=== PATIENT | male | born 1945 | race Caucasian/White ===

== ENCOUNTER 2019-01-06 12:53 | Inpatient (IN) | payer MEDICARE ==
[~2019-01-06] VITALS: Ht 185.4 cm; Wt 90.3 kg
[~2019-01-06 12:53] MED LIST: CARDURA8 MG PO
[2019-01-06] MEDS ORDERED: PRINIVIL20 MG PO (14:02)
[2019-01-06] MEDS ORDERED: K-TAB ER20 MEQ PO (15:30)
[2019-01-06] MEDS ORDERED: ATENOLOL-CHLOR1 EACH PO (15:30)
[2019-01-06] MEDS ORDERED: NORVASC10 MG PO (15:32)
--- NOTE | 2019-01-06 19:09 | NUR ---
PT ADMITTED TO FLOOR. DR BROOKS IN ROOM AND ORDERED NG TUBE PLACEMENT, BOLUS AND FLUIDS. GOING TO SURGERY IN APPROX ONE HOUR FROM ADMISSION. PT SIG OTHER IN ROOM, MAXWELL. PLACED NG ORDERED, WOULD NOT ADVANCE AND GOT A BLOODY NOSE IN LEFT NARE. REMOVED AND PLACED WO DIFFICULTY IN RIGHT NARE. APPORX 25O GREEN FLUID BACK INTO LIWS. PT [place] PERFORMED. NO JEWELRY. UNDERWEAR AND SOCKS REMOVED. SCDS. PLACED. VS STABLE. PT REMAINS ON RA. RATES PAIN 5\10. LR AND STRAIGHT TUBING HANGING.
--- NOTE | 2019-01-06 19:20 | NUR ---
REPORT RECEIVED FROM DAY SHIFT RNYUMIKO. PT IN BED AOX3. SIGNIFICANT OTHER AT BEDSIDE. NG TUBE PATENT. IV BOLUS INFUSING. SCD'S IN PLACE. CALL LIGHT IN REACH.
--- NOTE | 2019-01-06 19:40 | NUR ---
ROUNDED CHARGE. PATIENT IS DISCUSSING PLAN OF ACTION WITH ELEVATOR SUPERVISOR. IS PRESENT AT THE BEDSIDE. ALL QUESTIONS ANSWERED. PATIENT AND DENY AN FURTHER COMMENTS, QUESTIONS, OR CONCERNS. NO FURTHER NEEDS NOTED. CALL LIGHT IN REACH.
--- NOTE | 2019-01-06 19:45 | NUR ---
FAMILY LAW ATTORNEY AND SURGERY NURSE IN TO TRANSFER PT TO OR. LR AND ZOSYN HUNG TO STRAIGHT TUBING PER MD ORDERS. NG TUBE CLAMPED. SIGNIFICANT OTHER, MAXWELL, REMAINS IN PT ROOM.
--- NOTE | 2019-01-06 23:02 | NUR ---
01/06/19 2302 Divya Parham 2215 PT ARRIVED IN PACU NON RESPONSIVE TO VERBAL/TACTILE STIMULI WITH ORAL AIRWAY IN PLACE. 221 EKG DONE BY RT. 2230 DR HIGH AT BEDSIDE CHECKING ON PT. LABS DRAWN. 2245 PT REACTIVE. ORAL AIRWAY REMOVED. FALLS BACK TO SLEEP WHEN NOT STIMULATED. SATS 99% ON 6L MASK.
--- NOTE | 2019-01-06 23:30 | NUR ---
PT TRANSFERRED TO FLOOR VIA STRETCHER, TRANSFERRED SELF TO HOSPITAL BED WITH OUT DIFFICULTY. HAND OFF REPORT RECEIVED FROM PACU NURSE. PT AOX3. NO C/O PAIN OR NAUSEA. SCD'S IN PLACE. TELE PLACED PER MD ORDERS. SIPS OF WATER GIVEN. ASSESSMENT AND VS COMPLETE. PT RE-ORIENTED TO ROOM, INSTRUCTED NOT TO GET OUT OF BED WITHOUT ASSISTANCE. CALL LIGHT IN REACH.
--- NOTE | 2019-01-07 00:30 | NUR ---
PT RESTING IN BED WITH EYES CLOSED, AWAKENS EASILY. VS COMPLETE. NO C/O PAIN OR NAUSEA. NO REQUESTS AT THIS TIME, CALL LIGHT IN REACH.
--- NOTE | 2019-01-07 01:31 | NUR ---
PT DROWSY BUT AWAKENS EASILY. AOX3. DENIES PAIN OR NAUSEA AT THIS TIME. IV POTASSIUM INFUSING, PT W/O COMPLAINTS OR REQUESTS AT THIS TIME. CALL LIGHT IN REACH.
--- NOTE | 2019-01-07 02:30 | NUR ---
VS COMPLETE. PT IN BED RESTING WITH EYES CLOSED, AWAKENS EASILY. AOX3. NO C/O PAIN OR NAUSEA. O2 SATS 97% ON 2L/NC, RR 14. IV MEDS INFUSING PER MD ORDER. SCD'S IN PLACE. BECKY PATENT. PT HAS NO OTHER REQUESTS AT THIS TIME, CALL LIGHT IN REACH.
--- NOTE | 2019-01-07 05:03 | NUR ---
PT AWAKE IN BED, WATCHING TV. IV ABX INFUSING. PT DENIES PAIN OR NAUSEA. ASSESSMENT COMPLETE. PT TOLERATING SIPS OF WATER. SAYS HE FEELING "MUCH BETTER THAN YESTERDAY". NO OTHER REQUESTS AT THIS TIME, CALL LIGHT IN REACH.
--- NOTE | 2019-01-07 06:17 | NUR ---
PATIENT RESTED WELL THROUGHOUT THE NIGHT WITH NO C/O PAIN OR NAUSEA. SCD'S IN PLACE. PENA PATENT, DRAINING YELLOW URINE. PT'S O2 SATS >97% CONSISTENTLY. O2 AND CPOX REMOVED THIS A.M. PT TOLERATING SIPS OF WATER. DRESSING CLEAN, DRY, AND INTACT. TELE #[address] PT REMAINED AOX3 ALL NIGHT.
--- NOTE | 2019-01-07 07:10 | NUR ---
PT OOB TO RECLINER WITH STANDBY ASSIST. PT DID NOT COMPLAIN OF DIZZINESS, STEADY ON HIS FEET. ABD SPLINT PROVIDED FOR COMFORT. APPLE JUICE GIVEN PER PT REQUEST. PT DENIES PAIN OR NAUSEA. CALL LIGHT IN REACH.
--- NOTE | 2019-01-07 07:45 | NUR ---
REPORT RECIEVED FROM GLENYS ALVAREZ. PT SITTING UP IN CHAIR. INSTRUCTED ME "NO MORE NG TUBES FROM YOU" APPEARS IN A GOOD MOOD. STATES PAIN HAS BEEN WELL CONTROLLED. LR @125. TOLERATING CLEAR LIQ.
--- NOTE | 2019-01-07 10:17 | NUR ---
PT ASSESSMENT DONE. DRESSING CDI. LUNGS DIM IN RIGHT BASE. PENA REMOVED WNL. EDUCATED ON CURRENT ILLNESS AND RECENT AFIB DIAGNOSIS. ADMINISTERED MEDICATIONS. ASSISTED BACK TO BED FOR ECHO.
--- NOTE | 2019-01-07 10:55 | NUR ---
PT SITTING BACK IN CHAIR AFTER HAVING ECHO. APPEARS PAINFUL WITH MOVEMENT BUT STATES THAT IT SUBSIDES AFTER SITTING, DECLINED MEDICATION.
--- NOTE | 2019-01-07 11:28 | NUR ---
PT WALKED TWO LAPS IN HALLWAY AT MODERATE PACE. DECLINED ANY PAIN MEDICATION. TOLERATED WELL. SITTING BACK IN CHAIR WITH BLANKETS.
--- NOTE | 2019-01-07 12:28 | NUR ---
VISITED WITH PT GLENYS CALDERON WAS ATTENDING. PT JOKING SAID I COULD ENTER IF I DIDN'T HAVE ANY "TUBES OR SHARP THINGS"! BRIEF VISIT, PT GETTING READY TO WALK IN HALLWAY. GAVE ENCOURAGEMENT, WILL FOLLOW NEEDED
--- NOTE | 2019-01-07 12:44 | NUR ---
PT SITTING IN CHAIR JUST FINISHED CLEAR LUNCH TRAY. WOULD LIKE TO BE ADVANCE A BIT FOR DINNER. DENIES FLATUS, BUT HAS ACTIVE BT'S. DOES NOT FEEL URGE TO VOID YET. WILL MONITOR. DENIES PAIN MEDICATION, STATES IT IS TOLERABLE.
--- NOTE | 2019-01-07 13:39 | EKG ---
[facility] [address] [facility] [place], [place] [address] Signed Atrial fibrillation with slow ventricular response Possible Inferior infarct , age undetermined Abnormal ECG No previous ECGs available Confirmed by SIENA HIGH MD ([id number]) on 01/07/2019 1:39:17 PM Electronically Signed By: SIENA HIGH MD 01/07/19 1339 PATIENT NAME: HENNY SAUCEDA Electrocardiogram DATE OF : 45 PHYSICIAN: SIENA HIGH MD REPORT #: [id number] REPORT IS CONFIDENTIAL AND NOT TO BE RELEASED WITHOUT AUTHORIZATION
--- NOTE | 2019-01-07 13:42 | EKG ---
[facility] [address] [facility] [place], [place] [address] Signed Atrial fibrillation Abnormal ECG When compared with ECG of 06-JAN-2019 13:59, (Unconfirmed) QT has lengthened Confirmed by SIENA HIGH MD ([id number]) on 01/07/2019 1:42:29 PM Electronically Signed By: SIENA HIGH MD 01/07/19 1342 PATIENT NAME: SOHAILHENNY ELKINS Electrocardiogram DATE OF : 45 PHYSICIAN: SIENA HIGH MD REPORT #: [id number] REPORT IS CONFIDENTIAL AND NOT TO BE RELEASED WITHOUT AUTHORIZATION
--- NOTE | 2019-01-07 14:15 | NUR ---
pt sitting up in chair. pt has no needs at this time. call light within reach.
--- NOTE | 2019-01-07 14:53 | NUR ---
PT ON PHONE WITH FRIEND AND WOULD LIKE TO WALK IN A BIT, WHEN OFF PHONE. WILL RETURN.
--- NOTE | 2019-01-07 15:30 | NUR ---
PT WALKED IN HALLWAY WITH THIS RN. DID TWO LOOPS QUITE QUICKLY AGAIN. TOLERTAED WELL. ADMINISTERED 1ST PRN TYLENOL AND SOME ICE CREAM. PT BACK IN CHAIR WITH FEET UP. CALL LIGHT IN REACH.
--- NOTE | 2019-01-07 16:52 | NUR ---
PT STATES THE ICE CREAM MADE HIS STOMACH GRUMBLE A BIT. LISTENED FOR BOWEL TONES AND NOW RARELY HERE ANYTHING. ADVISED PT TO GO SLOWLY WITH INTAKE AND LET ME KNOW IF HE GETS NAUSOUS.
--- NOTE | 2019-01-07 17:42 | NUR ---
WALKED ANOTHER 2 LAPS IN THE HALLWAY. TOLERATED WELL. ATE FULL LIQ TRAY WO DIFFICULTY. UP TO RESTROOM. VOIDED AGAIN. WANTED TO GET BACK IN BED FOR A LITTLE WHILE. STATES HE WILL TRY TO WALK AGAIN TONIGHT WITH RAILROAD TRACK REPAIR SUPERVISOR. BUT IS PRETTY TIRED FROM BEING UP ALL DAY.
--- NOTE | 2019-01-07 18:06 | NUR ---
PT WALKED IN HALLWAY MULTIPLE TIMES TODAY, 2 LAPS EACH TIME. TOLERATED WELL. BT ACTIVE THIS MORNING AND NOW RARE. PT DENIES BLOATING, TIGHTNESS OR MUCH PAIN. GIVEN TYLENOL X1 TODAY. STATES HE FEELS SOME RUMBLING BUT HASN'T PASSED GAS. MIDLINE CDI. ABD REMARKABLY NON TENDER. TOLERATING FULL LIQ.
--- NOTE | 2019-01-07 18:55 | OR ---
[facility] [address] [place], [place] [address] Signed DATE OF OPERATION: 01/06/2019 SURGEON: Benji Brooks MD PREOPERATIVE DIAGNOSES: Acute cecal volvulus with colonic obstruction and new onset atrial fibrillation. POSTOPERATIVE DIAGNOSES: 1. Acute cecal volvulus with colonic obstruction and new onset atrial fibrillation. 2. Ischemic colon. 3. Subacute cholecystitis with dilated gallbladder. PROCEDURES PERFORMED: 1. Right colectomy with [id number] ileotransverse colostomy. 2. Open cholecystectomy. ANESTHESIA: 1. General endotracheal, [place]. 2. Preoperative TAP block ultrasound guided. INDICATION: This 74-year-old white man was admitted through the emergency room, evaluated by Dr. Muñoz, with two days of increasing and severe abdominal pain. He has marked abdominal distention clinically. A CT scan was performed, which showed a very enlarged cecum related to cecal volvulus. The patient's white count was 11.5. He does have new onset atrial fibrillation, though his rate is well controlled as he is on a beta gnhia to begin with. He has been fluid resuscitated given intravenous antibiotics, and is now to undergo a laparotomy with remedy of this cecal volvulus. This might involve cecopexy or more likely partial colectomy. Risks of bleeding, infection, need for other indicated procedures and so forth were reviewed with the patient and his significant other in detail. They understand and wished to proceed. FINDINGS: Indeed the cecum and essentially all the right colon and portion of the hepatic flexure of the colon were markedly ischemic and dilated. Right hemicolectomy was undertaken with a hjwt-ct-[id number] functional end-to-end ileotransverse colostomy. Small bowel loops were otherwise normal. The gallbladder was chronically and subacutely inflamed and cholecystectomy was also performed. He tolerated the procedure well. DESCRIPTION OF PROCEDURE: Electronically Signed By: BENJI BROOKS MD 01/07/19 1855 PATIENT NAME: HENNY SAUCEDA OPERATIVE REPORT DATE OF : 45 REPORT #: [id number] PHYSICIAN: BENJI BROOKS MD PCP: NO PRIMARY CARE PHYSICIAN REPORT IS CONFIDENTIAL AND NOT TO BE RELEASED WITHOUT AUTHORIZATION [facility] [address] [place], [place] [address] Signed The patient was brought to the operating room and given a general endotracheal anesthetic. With ultrasound guidance, a TAP block was provided bilaterally. The abdomen was clipped and prepared with chlorhexidine solution after placement of a Edmondson catheter. An incision was made cephalad to the umbilicus and extending below it somewhat. The initial attempt was to maintain a small incision; however, upon entry to the abdomen, marked dilation of the colon and friability and ischemic changes were quite readily evident. There was no gross perforation that I could tell or abscess fluid. The incision was extended cephalad and inferiorly a bit. Various manipulations were undertaken and photographs were taken. A tightly coiled torsed cecum was noted and could not be unfurled with the exposure and therefore the incision was extended cephalad a bit. This allowed for detorsion of the cecum revealing a markedly ischemic cecum and dilated portion of right transverse colon. The ileum itself was well preserved. There was lack of fixation of the right colon to the abdominal wall. There were adhesions of omentum in the region of the gallbladder. The gallbladder was freed from the omental adhesions with electrocautery. A Bookwalter was attached to the table and ultimately the right colon, ileum, and transverse colon could be delivered outside of the abdominal cavity. Given the ischemic changes of the cecum in particular, right colectomy was deemed most advisable. The hepatic flexure was mobilized first predominantly with electrocautery with good visualization of the duodenum and head of the pancreas. The transverse mesocolon was well identified and the attenuated attachments from the right abdominal wall were freed with electrocautery ultimately mobilizing the right colon and the outside of the abdomen more fully. Sequential application of hemostats beginning at the ileum was undertaken to the mesentery allowing for ligation of the vascular arcades with 0 silk ties. Division of the right colon mesentery was undertaken approximately half the distance between the colon and the root of the mesentery. This extended superiorly and transversely across to the transverse mesocolon. The middle colic arterial vascular arcade was maintained. An area of transection was designated to right of the middle colic vessels. Using a 75 mm MINERVA stapling device, the transverse colon was transected. Subsequent to that, the ileum was transected just beyond the antimesenteric fat pad of tree. Specimen was passed off the table, opened on the back table and found to have necrotic and ischemic segments throughout. The wound was then isolated with laparotomy packs and plans were made for anastomosis. The stapled ends were oversewn with interrupted 3-0 silk suture. The bowel was aligned to allow for a [id number] functional, end-to-end stapled anastomosis so as to expedite the operation given his underlying new onset atrial fibrillation and other stressors. Electronically Signed By: BENJI BROOKS MD 01/07/19 0876 PATIENT NAME: HENNY SAUCEDA OPERATIVE REPORT DATE OF : 45 REPORT #: [id number] PHYSICIAN: BENJI BROOKS MD PCP: NO PRIMARY CARE PHYSICIAN REPORT IS CONFIDENTIAL AND NOT TO BE RELEASED WITHOUT AUTHORIZATION [facility] [address] [place], [place] [address] Signed Using the 75 mm MINERVA, the two segments of bowel were joined. The staple line was inspected and found to be hemostatic. The anvil sites were then oversewn with interrupted 3-0 silk suture. Good security was noted to the anastomosis, which was widely patent. The mesenteric defect was reapproximated with running 3-0 silk suture. Irrigation was undertaken with warm saline solution. Reinspection around the abdomen showed the gallbladder to be quite distended and inflamed. Was that secondary to the process of the colon or separate issue from the gallbladder itself was uncertain. Cholecystectomy was deemed appropriate. A ring clamp was applied to the apex of the gallbladder and using electrocautery it was dissected free from the liver bed ultimately identifying well the cystic duct and cystic arterial branch, which were triply clipped and divided. The gallbladder was passed off the table and found to have chronic inflammatory changes of the mucosa. Irrigation was undertaken more fully. There was no sign of bile leak or other problems. The omentum was inspected and few areas of oozing were secured with hemostats and silk ties. Once irrigation was complete and excess irrigation fluid was suctioned free, the bowel was rearranged to a natural anatomic configuration, the omentum placed over the abdominal contents. Attention was then turned towards closure. The gastric tube was palpated and was in good position. The stomach was decompressed already. Nasogastric tube was removed at this point. Midline fascia was reapproximated with running bidirectional #1 PDS suture. Subcutaneous tissue irrigated and skin closed with running subcuticular 3-0 Vicryl. Steri-Strips were applied as was a Mepilex silver sponge dressing and OpSite. Benji Brooks MD JM/MODL /[id number] cc: Grace Muñoz MD Copies: GRACE MUÑOZ MD ~ Electronically Signed By: BENJI BROOKS MD 01/07/19 1855 PATIENT NAME: HENNY SAUCEDA OPERATIVE REPORT DATE OF : 45 REPORT #: [id number] PHYSICIAN: BENJI BROOKS MD PCP: NO PRIMARY CARE PHYSICIAN REPORT IS CONFIDENTIAL AND NOT TO BE RELEASED WITHOUT AUTHORIZATION
--- NOTE | 2019-01-07 18:55 | HP ---
[facility] [address] [place], [place] [address] Signed ADMISSION DATE: 01/06/2019 REASON FOR ADMISSION: Advanced cecal volvulus with obstruction. HISTORY OF PRESENT ILLNESS: This 74-year-old white man is known to me from the distant past having undergone excision of right cheek basal cell carcinoma by me in 2011. Additionally, he has had hand surgery by me in the distant past. The operative reports were not available. He has had 48 hours of increasing abdominal pain and presented to the emergency room, where he was thoroughly evaluated by Dr. Muñoz. His pain was worsened with abdominal palpation. A CT scan was performed, which showed a marked cecal volvulus. He is admitted for further evaluation and care. The patient has not had nausea or vomiting, though he has had distention of his stomach in addition to the markedly distended cecum proper. He was noted to have concurrent hyponatremia. The patient has had weight loss in recent times related to dieting. His significant other (live-in girlfriend) underwent a bariatric operation and show solidarity with her purpose to embark on weight loss efforts. Noted on the CT scan was a distended stomach with air-fluid level, but normal gallbladder and other intraabdominal organs including the liver. There is mild bibasilar atelectasis. MEDICATIONS: At admission include amlodipine 10 mg p.o. daily, atenolol, chlorthalidone 0.5 tablet daily, lisinopril 20 mg p.o. daily, potassium chloride by K-Tab extended release 20 mEq p.o. daily. ALLERGIES: He has no known drug allergies. SOCIAL HISTORY: He continues to work part-time for [employer] in the [place], [place] area. He has a significant other girlfriend, who he lives with. REVIEW OF SYSTEMS: He denies any chest pain or shortness of breath particularly. He has not recently had Electronically Signed By: BENJI BROOKS MD 01/07/19 1855 PATIENT NAME: HENNY SAUCEDA HISTORY AND PHYSICAL DATE OF : 45 REPORT #: [id number] PHYSICIAN: BENJI BROOKS MD PCP: NO PRIMARY CARE PHYSICIAN REPORT IS CONFIDENTIAL AND NOT TO BE RELEASED WITHOUT AUTHORIZATION [facility] [address] [place], [place] [address] Signed nausea or vomiting. He has had no blood per rectum and no flatus per rectum. Abdominal pain is about 6-7 on a 10 scale. PHYSICAL EXAMINATION: GENERAL: Pleasant white man, who does not look systemically toxic at this time. HEENT: Mucous membranes are slightly dry. Trachea is midline. CHEST: Clear. HEART: Regular without murmur. ABDOMEN: Distended and firm. Palpation of the upper abdomen shows mild tenderness. There is no ascites that I can tell. EXTREMITIES: Show no clubbing, cyanosis, or edema. LABORATORY STUDIES: Show a white count of 11.5, hematocrit 45.5, platelets 141,000. Chem profile abnormal for sodium of 126, chloride is 92, creatinine is 1.19, glucose 177, bilirubin 1.5. Liver enzymes normal. Lipase normal at 21. Urinalysis essentially normal, specific gravity 1.021, urine white cells 8-10 per high-power field. Imaging studies reviewed include a chest x-ray, which shows no significant cardiopulmonary abnormality, mild bibasilar atelectasis is noted. CT of abdomen as previously described. ASSESSMENT AND PLAN: He has an impressively significant cecal volvulus with obstruction. As colonoscopically decompression is commonly unsuccessful, I recommend proceeding directly to operation, which will include possible detorsion of the volvulus and cecopexy with decompression versus right colectomy depending on findings. Risks of bleeding, infection, and other unforeseen complications were reviewed in detail. Fluid will be administered at this time and a nasogastric tube placed on the basis of his findings on CT of a full stomach. MD LANCE Smith/MODL /[id number] cc: Grace Muñoz MD Electronically Signed By: BENJI BROOKS MD 01/07/19 1855 PATIENT NAME: HENNY SAUCEDA HISTORY AND PHYSICAL DATE OF : 45 REPORT #: [id number] PHYSICIAN: BENJI BROOKS MD PCP: NO PRIMARY CARE PHYSICIAN REPORT IS CONFIDENTIAL AND NOT TO BE RELEASED WITHOUT AUTHORIZATION [facility] [address] [place] [address] [place] [address] Signed Copies: GRACE MUÑOZ MD ~ Electronically Signed By: BENJI BROOKS MD 01/07/19 1855 PATIENT NAME: HENNY SAUCEDA HISTORY AND PHYSICAL DATE OF : 45 REPORT #: [id number] PHYSICIAN: BENJI BROOKS MD PCP: NO PRIMARY CARE PHYSICIAN REPORT IS CONFIDENTIAL AND NOT TO BE RELEASED WITHOUT AUTHORIZATION
--- NOTE | 2019-01-07 20:23 | NUR ---
REPORT RECEIVED FROM DAY SHIFT RN. PT IN BED WATCHING TV, ALERT AND ORIENTED. SCD'S IN PLACE. MD IN TO SEE PATIENT. PT REPORTS PASSING GAS. NO OTHER REQUESTS AT THIS TIME, CALL LIGHT IN REACH.
--- NOTE | 2019-01-07 20:48 | NUR ---
ASSESSMENT COMPLETE, SCANT AMT OF DRAINAGE NOTED ON ABDOMINAL DRESSING. HYPOACTIVE BOWEL TONES, PT STATES HE PASSED GAS. PT DENIES PAIN OR NAUSEA. SCD'S IN PLACE. CALL LIGHT IN REACH. NO OTHER REQUESTS AT THIS TIME.
--- NOTE | 2019-01-08 00:20 | NUR ---
PT RESTING IN BED WITH EYES CLOSED, RR 14. CALL LIGHT IN REACH.
--- NOTE | 2019-01-08 02:19 | NUR ---
ASSESSMENT COMPLETE. PT DENIES PAIN OR NAUSEA. NO OTHER REQUESTS AT THIS TIME. CALL LIGHT IN REACH.
--- NOTE | 2019-01-08 04:14 | NUR ---
IV ABX INFUSING. PT RESTING IN BED. NO C/O NAUSEA OR PAIN. FRESH WATER GIVEN PER PT REQUEST. CALL LIGHT IN REACH.
--- NOTE | 2019-01-08 05:42 | NUR ---
PT HAS RESTED WELL THROUGHOUT THE NIGHT. MEDICATED WITH PRN TYLENOL FOR C/O 3/10 ABDOMINAL PAIN RESULTING FROM COUGHING. STATES HIS THROAT IS STILL IRRITATED FROM THE "TUBE" YESTERDAY. VOIDING QS. NO COMPLAINTS OF NAUSEA. STATES HE HAS PASSED GAS. PT ON TELE #5.
--- NOTE | 2019-01-08 06:30 | NUR ---
PT OOB TO CHAIR. AMB WITH MINIMAL ASSIST. STATES PAIN IS 3/10, DESCRIBES IT FEELING "SORE". IN RECLINER WITH LEGS ELEVATED, CALL LIGHT IN REACH.
--- NOTE | 2019-01-08 08:30 | NUR ---
SBA INTO BATHROOM FOR BM, STATES HE IS FEELING STRONGER TODAY. HOPES TO HAVE DIET ADVANCED FROM FULL LIQUID. STATES HE IS FEELING HUNGRY. GOOD BOWEL TONES.
[2019-01-08] MEDS ORDERED: VITAMIN D-32000 UNIT PO (09:45)
--- NOTE | 2019-01-08 09:45 | NUR ---
MED REC COMPLETE
--- NOTE | 2019-01-08 12:40 | NUR ---
PT SITTING IN CHAIR, WATCHING TV. HE WAVED AND SMILED, ALERT AND ORIENTED. HE LOOKED RATHER SULLEN, I ASKED HIM HOW HE WAS DOING? NOT MUCH SLEEP LAST NIGHT-RN'S CONSTANTLY WAKING HIM UP. HE ALSO MENTIONED HE IS REALLY BORED AND WOULD REALLY LIKE TO BE DC'D. GAVE ENCOURAGEMENT AND BLESSING, WILL FOLLOW NEEDED
--- NOTE | 2019-01-08 13:15 | NUR ---
PT INTO BATHROOM AND PASSED A SMALL AMOUNT OF STOOL AND INCREASED AMOUNT OF MICHAEL RED BLOOD. CALL PLACED TO DR BROOKS RE: INCREASED BLOOD WITH STOOL. STATED HE WOULD LIKE IT MONITORED AT THIS POINT AND NOT UNUSUAL WITH THIS TYPE OF STAPLE LINE IN HIS SURGERY. PT WALKED LOOP, NO WEAKNESS. DENIES PAIN.
--- NOTE | 2019-01-08 16:11 | NUR ---
PT IS TOLERATING REGULAR DIET WELL. NO FURTHER BLEEDING OR STOOLS. AMBULATED IN HALLWAY AGAIN. DENIES ANY NEEDS. RESTING IN RECLINER.
--- NOTE | 2019-01-08 18:30 | NUR ---
RESTING ON BED, STATES HE IS COMFORTABLE, NO NAUSEA, NO FURTHER BLEEDING, GOOD BOWEL SOUNDS, NO NAUSEA. DENIES ANY NEEDS. CALL LIGHT IN EASYR EACH.
--- NOTE | 2019-01-08 19:01 | NUR ---
IN ROOM FOR REPORT, PT DENIES NEEDS AT THIS TIME. CALL LIGHT IS WITHIN REACH.
--- NOTE | 2019-01-08 20:33 | NUR ---
IN ROOM TO ADMINISTER MEDICATIONS AND ASSESS PT. HE REPORTS PAIN AT 3/10 AND TYLENOL WAS ADMINISTERED. HIS MIDLINE INCISION IS CDI WITH A SMALL AMOUNT OF SHADOWING NOTED ON THE INFERIOR END OF THE DRESSING. PT HAS FRESH ICEWATER AT BED SIDE AND DENIES FURTHER NEEDS. CALL LIGHT IS WITHIN REACH.
--- NOTE | 2019-01-08 21:30 | NUR ---
this rn in room to answer call light. pt states, "i need these foot things off, i can't sleep". pt refuses to wear bilateral scd's at this time. pt's house worker rn made aware. no further needs, call light in reach.
--- NOTE | 2019-01-08 22:59 | NUR ---
PT IS RESTING WITH EYES CLOSED, RESPIRATIONS ARE EVEN AND NONLABORED. CALL LIGHT IS WITHIN REACH.
--- NOTE | 2019-01-09 00:05 | NUR ---
EMPTIED PT'S URINAL. HE DENIES FURTHER NEEDS AT THIS TIME. CALL LIGHT IS WITHIN REACH.
--- NOTE | 2019-01-09 00:27 | NUR ---
PT IS RESTING WITH EYES CLOSED, RESPIRATIONS ARE EVEN AND NONLABORED. CALL LIGHT IS WITHIN REACH.
--- NOTE | 2019-01-09 02:00 | NUR ---
PT IS RESTING WITH EYES CLOSED, RESPIRATIONS ARE EVEN AND NONLABORED. CALL LIGHT IS WITHIN REACH.
--- NOTE | 2019-01-09 03:56 | NUR ---
PT IS RESTING WITH EYES CLOSED, RESPIRATIONS ARE EVEN AND NONLABORED. CALL LIGHT IS WITHIN REACH.
--- NOTE | 2019-01-09 05:10 | NUR ---
PT WAS UP TO RESTROOM, HE DENIES NEEDS AT THIS TIME. HE STATES HE HAS ALREADY ORDERED BREAKFAST AND DENIES PAIN AND FURTHER NEEDS AT THIS TIME. CALL LIGHT IS CLOSE.
--- NOTE | 2019-01-09 06:04 | NUR ---
PT REPORTS USING THE URINAL AND DUMPING IT ABOUT 600MLS. HE ALSO SAYS HE HAD A BM BUT FLUSHED IT. HE DENIES BLOOD BUT SAYS IT WAS DARK. HE DENIES FURTHER NEEDS AT THIS TIME. CALL LIGHT IS CLOSE.
--- NOTE | 2019-01-09 06:45 | NUR ---
PT SLEPT ON AND OFF THROUGH THE NIGHT. HIS IV IS SL AND HE IS TOLERATING A REGULAR DIET. HE AMBULATES SBA/IND. URINE OUTPUT IS GOOD AND PT REPORTS A BM THAT WAS "DARK" BUT DENIES BLOOD IN IT. HE IS HOPING TO DC HOME TODAY. ABD DRESSING IS CDI WITH A SCANT AMT OF SHADOWING.
--- NOTE | 2019-01-09 07:00 | NUR ---
BEDSIDE HANDOFF REPORT RECEIVED FROM LOUNGE CAR ATTENDANT RN. PT SITTING IN CHAIR. PT DENIES NEEDS AT THIS TIME.
--- NOTE | 2019-01-09 08:36 | NUR ---
PT SITTING IN CHAIR, EATING BREAKFAST. PT STATES PAIN TOLERABLE. PT DENIES NAUSEA, TOELRATING REGULAR DIET. PT ON ROOM AIR, LUNG SOUNDS CLEAR. BOWEL TONES ACTIVE. MIDLINE INCISION WITH DRESSING INTACT, SMALL AMOUNT OF OLD DRAINAGE TO LOWER DRESSING. CMS INTACT, WITHOUT EDEMA, DENIES NUMBNESS/TINGLING. PT SALIEN LOCKED. PT INDEPENDENT IN ROOM. DISCUSSED PLAN OF CARE FOR THE DAY, DISCUSSED WALKING IN WANG. PT DENIES OTHER NEEDS AT THIS TIME.
--- NOTE | 2019-01-09 09:36 | NUR ---
PT WALKED TWO LAPS IN THE HALLWAY AND DID VERY WELL. BACK IN CHAIR AND CALL LIGHT IN PLACE.
[2019-01-09] MEDS ORDERED: OFIRMEV1000 MG/10 IV (09:46)
[2019-01-09] MEDS ORDERED: IBUPROFEN600 MG PO (09:46)
[2019-01-09] MEDS ORDERED: METRONIDAZOLE250 MG PO (09:46)
[2019-01-09] MEDS ORDERED: AMOX TR-K CLV1 EACH PO (09:46)
[2019-01-09] MEDS ORDERED: FAMOTIDINE20 MG PO (10:00)
[2019-01-09] MEDS ORDERED: TYLENOL325 MG PO (10:00)
--- NOTE | 2019-01-09 10:37 | NUR ---
PT ANXIOUS TO DISCHARGE, EDUCATED THAT DR. HIGH WILL NEED TO SEEM HIM BEFORE DISCHARGE. PT DENIES OTHER NEEDS AT THIS TIME.
--- NOTE | 2019-01-09 11:51 | NUR ---
PATIENT REFUSED SHOWER THIS MORNING. CHANGED BED LINENS.
[2019-01-09] MEDS ORDERED: ATENOLOL50 MG PO (12:18)
--- NOTE | 2019-01-10 00:52 | EKG ---
[facility] [address] [place] [address] Signed Atrial fibrillation with rapid ventricular response Minimal voltage criteria for LVH, may be normal variant Abnormal ECG When compared with ECG of 06-JAN-2019 22:17, Vent. rate has increased BY 35 BPM Confirmed by SIENA HIGH MD ([id number]) on 01/10/2019 12:52:24 AM Electronically Signed By: SIENA HIGH MD 01/10/19 0052 PATIENT NAME: HENNY SAUCEDA Electrocardiogram DATE OF : 45 PHYSICIAN: SIENA HIGH MD REPORT #: [id number] REPORT IS CONFIDENTIAL AND NOT TO BE RELEASED WITHOUT AUTHORIZATION
--- NOTE | 2019-01-10 22:37 | DS ---
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 He had 48 hours of increasing abdominal pain, presented to the emergency room, where he was evaluated by Dr. Mclain. His pain worsened. Abdominal palpation showed it to be tender and with marked distention. A CT scan of the abdomen confirmed cecal volvulus. He is admitted for further evaluation and care. PERTINENT PHYSICAL EXAMINATION: GENERAL: Showed a tall white man who did not look systemically toxic. Trachea midline. CHEST: Clear. HEART: Irregularly irregular without murmur. EKG revealed findings consistent with atrial fibrillation (new onset). Heart rate was in the 70s however. ABDOMEN: Markedly distended and tender diffusely, mostly in the right side. EXTREMITIES: Showed no clubbing, cyanosis, or edema. LABORATORY STUDIES: Showed white count 11.5, hematocrit 45.5, platelets 141,000. Creatinine 1.19. Liver enzymes were normal. Lipase normal at 21. HOSPITAL COURSE: He was recognized as having significant cecal volvulus, and on that basis, fluid resuscitation was undertaken. Broad spectrum antibiotic Timentin was given and plans were made for operation emergently. He underwent laparotomy where he was found to have a markedly torsed cecum and right colon. He underwent right colectomy with [id number] functional end-to-end ileotransverse colostomy. Additionally, cholecystectomy was performed as the gallbladder was chronically inflamed. The liver appeared normal. He was begun on clear liquids the night of operation, anticipating an early recovery approach. He had undergone a TAP block anticipating operation and use of intravenous Tylenol and Toradol was undertaken. A backup of opiate medication was available, but never used. On postoperative day one, he had some flatus and was advanced his liquid diet to full liquid diet and postop day 2 had bowel movement, for which he was advanced to regular diet. He tolerated all of this well and by day of discharge is ambulating well, tolerating a regular diet, has minimal incisional pain well managed by Tylenol alone. Incision is healing well. Pathology report is pending. Electronically Signed By: BENJI BROOKS MD 01/10/19 2237 PATIENT NAME: HENNY SAUCEDA DISCHARGE SUMMARY DATE OF : 45 REPORT #: [id number] PHYSICIAN: BENJI BROOKS MD PCP: BETTIE GALINDO PAC REPORT IS CONFIDENTIAL AND NOT TO BE RELEASED WITHOUT AUTHORIZATION [facility] [address], [place] [address] Signed The discharge he will avoid lifting more than 20 pounds for the next 4 weeks. He is permitted to shower and will keep Steri-Strips on the wound. He was evaluated during hospitalization for new onset atrial fibrillation by Dr. Leoanrdo. A specific cause of atrial fibrillation is uncertain. Notably, his atrial fibrillation was with controlled ventricular response. He showed no evidence of myocardial infarction. He was maintained with lisinopril, atenolol, amlodipine, and doxazosin during course of hospitalization. Notably, a chest x-ray showed no sign of neoplasm. The patient did not have tachycardia with his atrial fibrillation and likely was controlled based on his previous use of atenolol. His blood pressures remained stable throughout the hospitalization as well. FOLLOWUP: He will return to see me in approximately 4 weeks. He will have an appointment with his primary provider Aries kulkarni in the next 2-4 weeks. Questions of anticoagulation will be further discussed with Dr. Leonardo before his discharge. DISCHARGE MEDICATIONS: Will include: 1. Augmentin 500 mg p.o. t.i.d. #15. 2. Flagyl 250 mg p.o. t.i.d. #21. 3. Ibuprofen 600 mg p.o. q.6 hours p.r.n. pain, #30. 4. Tylenol 650 mg p.o. q.6 hours p.r.n. pain. He will continue with his usual medications of lisinopril 40 mg p.o. daily, atenolol chlorthalidone 0.5 mg tablets p.o. daily tablet strength 100/25. 5. Potassium chloride 20 milks mEq p.o. daily. 6. Amlodipine [address] Chaudhari 8 mg p.o. daily. 8. Vitamin D3 2000 units daily. DISCHARGE DIAGNOSES: 1. 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 2. Chronic cholecystitis, status post concurrent open cholecystectomy. 3. New onset atrial fibrillation without rapid ventricular response. 4. Longstanding hypertension. 5. Prior history of basal cell carcinoma of cheek. Electronically Signed By: BENJI BROOKS MD 01/10/19 2237 PATIENT NAME: SOHAILHENNY ELKINS DISCHARGE SUMMARY DATE OF : 45 REPORT #: [id number] PHYSICIAN: BENJI BROOKS MD PCP: BETTIE GALINDO PAC REPORT IS CONFIDENTIAL AND NOT TO BE RELEASED WITHOUT AUTHORIZATION [facility] [address] [place], [place] [address] Signed MD LANCE Smith/WAYNEL /[id number] Copies: ~ Electronically Signed By: BENJI BROOKS MD 01/10/19 2237 PATIENT NAME: HENNY SAUCEDA DISCHARGE SUMMARY DATE OF : 45 REPORT #: [id number] PHYSICIAN: BNEJI BROOKS MD PCP: BETTIE GALINDO PAC REPORT IS CONFIDENTIAL AND NOT TO BE RELEASED WITHOUT AUTHORIZATION
== END 2019-01-09 12:55 | disposition home or self-care (01) | DRG 330 ==
LOC: ED 12:53 → MS 17:27
PROVIDERS: ADMIT Surgery
PROC: 0DTF0ZZ Resection of Right Large Intestine, Open Approach (ICD-10-PCS; principal; 2019-01-06 19:21)
PROC: 0FT40ZZ Resection of Gallbladder, Open Approach (ICD-10-PCS; 2019-01-06 19:21)
PROC: 3E0T3BZ Introduction of Anesthetic Agent into Peripheral Nerves and Plexi, Percutaneous Approach (ICD-10-PCS; 2019-01-06 19:21)
DX: K56.2 Volvulus (principal); E87.1 Hypo-osmolality and hyponatremia; K55.1 Chronic vascular disorders of intestine; K81.1 Chronic cholecystitis; K82.8 Other specified diseases of gallbladder; I48.91 Unspecified atrial fibrillation; I10 Essential (primary) hypertension; G89.18 Other acute postprocedural pain; Z79.899 Other long term (current) drug therapy; Z85.828 Personal history of other malignant neoplasm of skin
CPT/HCPCS: 00840; 36415; 64488; 71046; 74177; 76942; 80053; 81001; 83690; 83735; 84443; 85025; 87088; 88304; 88307; 93005; 93010; 93306; 94762; 96361; 99291; C9113; J1100; J1170; J1644; J1885; J2270; J2370; J2405; J2543; J2704; J2795; J3010; J3475; J3480; J7030; J7060; J7120; Q9967

== ENCOUNTER 2020-04-28 08:58 | Emergency (ER) | payer MEDICARE, MEDICAID ==
[~2020-04-28] VITALS: Ht 185.4 cm; Wt 86.2 kg
[~2020-04-28 08:58] MED LIST changes: +AMOX TR-K CLV1 EACH PO; +ATENOLOL-CHLOR1 EACH PO; +ATENOLOL50 MG PO; +FAMOTIDINE20 MG PO; +IBUPROFEN600 MG PO; +K-TAB ER20 MEQ PO; +METRONIDAZOLE250 MG PO; +NORVASC10 MG PO; +OFIRMEV1000 MG/10 IV; +PRINIVIL20 MG PO; +TYLENOL325 MG PO; +VITAMIN D-32000 UNIT PO
--- NOTE | 2020-04-29 22:41 | EKG ---
[facility] [address] [facility] [place] [address] Signed Atrial fibrillation with slow ventricular response Nonspecific ST abnormality Abnormal ECG When compared with ECG of 09-JAN-2019 11:22, Vent. rate has decreased BY 46 BPM Confirmed by SIENA HIGH MD ([id number]) on 04/29/2020 10:41:09 PM Electronically Signed By: SIENA HIGH MD 04/29/20 2241 PATIENT NAME: SOHAILHENNY ELKINS Electrocardiogram DATE OF : 45 PHYSICIAN: SIENA HIGH MD REPORT #: [id number] REPORT IS CONFIDENTIAL AND NOT TO BE RELEASED WITHOUT AUTHORIZATION
== END 2020-04-28 11:02 | disposition short-term general hospital (02) ==
LOC: ED 08:58
DX: I63.511 Cerebral infarction due to unspecified occlusion or stenosis of right middle cerebral artery (principal); I10 Essential (primary) hypertension; Z87.891 Personal history of nicotine dependence; Z79.899 Other long term (current) drug therapy
CPT/HCPCS: 70450; 70496; 70498; 71045; 80053; 84484; 85025; 85610; 85730; 93005; 93010; 99285-25; J2060; J2997; Q3014; Q9967

== ENCOUNTER 2020-07-30 08:18 | Inpatient (IN) | payer MEDICARE, MEDICAID ==
[~2020-07-30] VITALS: Ht 185.4 cm; Wt 77.9 kg
[2020-07-30] MEDS ORDERED: METFORMIN HCL500 MG PO (08:53)
[2020-07-30] MEDS ORDERED: KLOR-CON 1010 MEQ PO (08:54)
[2020-07-30] MEDS ORDERED: ELIQUIS5 M1 PO (08:54)
[2020-07-30] MEDS ORDERED: ATORVASTATIN CA80 MG PO (08:56)
[2020-07-30] MEDS ORDERED: TOPROL XL50 MG PO (08:57)
[2020-07-30] MEDS ORDERED: DOXYCYCLINE HY100 MG PO (08:58)
--- NOTE | 2020-07-30 10:47 | NUR ---
REPORT RECEIVED FROM GLENYS JACKSON IN ER.
--- NOTE | 2020-07-30 12:11 | NUR ---
pt ARRIVES TO MS FLOOR. ORIENTATION TO ROOM PROVIDED. SCHEDULED MEDICATION ADMINISTERED. pt REFUSES ELIQUIS. EDUCATION PROVIDED. pt STATES "IF I DO HAVE ANOTHER STROKE I HOPE ITS A BIG ONE". MD NOTIFIED. IV SL WNL. 2+ EDEMA IN SCROTUM, BILATERALLY UPPER THIGHS. NYSTATIN POWDER APPLIED TO GROIN AREA, PILLOW CASES PLACED BETWEEN FOLDS. pt REFUSES TO LIFT SCROTUM FOR ELEVATION ON TOWEL. PRN TYLENOL ADMINISTERED FOR DISCOMFORT FROM PENA. WARM BLANKETS PROVIDED. CALL LIGHT IN REACH. pt VERBALIZES UNDERSTANDING TO USE CALL LIGHT BEFORE GETTING OUT OF BED.
--- NOTE | 2020-07-30 12:20 | NUR ---
FRANCINE WNL. LUNCH ORDERED FOR pt. PHARMACIST JOY NOW IN ROOM.
--- NOTE | 2020-07-30 13:07 | NUR ---
IN ROOM FOR SCHEDULED MEDICATION ADMINISTRATION. PENA EMPTIED, DILUTE URINE. DRAINING WNL. pt DENIES ADDITIONAL NEEDS AT THIS TIME. CALL LIGHT IN REACH.
--- NOTE | 2020-07-30 13:53 | EKG ---
[facility] [address] [facility] [place], [place] [address] Signed Atrial fibrillation Low voltage QRS Abnormal ECG When compared with ECG of 28-APR-2020 09:36, Questionable change in QRS axis Confirmed by SIENA HIGH MD ([id number]) on 07/30/2020 1:53:42 PM Electronically Signed By: SIENA HIGH MD 07/30/20 1353 PATIENT NAME: SOHAILHENNY Electrocardiogram DATE OF : 45 PHYSICIAN: SIENA HIGH MD REPORT #: [id number] REPORT IS CONFIDENTIAL AND NOT TO BE RELEASED WITHOUT AUTHORIZATION
[2020-07-30] MEDS ORDERED: LASIX20 MG PO (14:22)
[2020-07-30] MEDS ORDERED: PEPCID20 MG PO (14:25)
--- NOTE | 2020-07-30 14:45 | NUR ---
CALL LIGHT ANSWERED. pt PROVIDED WITH WARM BLANKET. PENA EMPTIED. SCHEDULED IV MEDICATION INFUSING WNL ORDERED. ASSESSMENT COMPLETE 3+ EDEMA BLE, SCROTUM. SCROTAL EDEMA SLIGHTLY IMPROVED. pt QUESTIONING MEDICATIONS, EDUCATION PROVIDED. CALL LIGHT IN REACH.
--- NOTE | 2020-07-30 15:44 | NUR ---
MED REC COMPLETE
--- NOTE | 2020-07-30 15:45 | NUR ---
IN pt ROOM FOR IV MEDICATION ADMINISTRATION, PO MEDS ADMINISTERED. WARM BLANKET PROVIDED. IN ROOM.
--- NOTE | 2020-07-30 18:25 | NUR ---
IN pt ROOM FOR SCHEDULED MEDICATION ADMINISTRATION. IV SL WNL. PENA DRAINING DILUTE URINE. CALL LIGHT IN REACH. NO REQUESTS AT THIS TIME.
--- NOTE | 2020-07-30 19:05 | NUR ---
Pt lying in bed. Shift report recieved by RN. white board cleared. Call light in reach. No concerns at this time.
--- NOTE | 2020-07-30 20:00 | NUR ---
DISCUSSED WITH DR HEBERT REGARDING PT'S PENA DISCOMFORT. PT REPORTS "THE WORST PAIN I HAVE EVER FELT, IF ONLY I COULD HAVE THIS PENA TAKEN OUT. IT HURTS ONLY WHEN I'M PEEING". PT VOIDING LARGE VOLUMES OF URINE AND REPORTS GENERALIZED PAIN AT SCROTUM AND PENIS AREA. PER DR HEBERT TRY AND KEEP PENA CATHETER IN PLACE AND TREAT PAIN WITH PRN PAIN MEDS AND REPOSITION. IF PT CONTINUES TO REPORT PAIN AND IS ADAMANT ON REMOVING PENA THEN OKAY TO REMOVE PENA AND MESSAGE HIM IN THE MORNING.
--- NOTE | 2020-07-30 21:04 | NUR ---
Pt lying in bed. Assessment complete. VS stable. Pt refused scheduled med eliquis. Pt claims that is the reason for edema and reddened LBE. Education was given if not taking medication. Pt verbalized understanding. Pt c/o pain 10/10 due to edema at scrotum. PRN pain meds administered. Repositioned pt and pillow placed under R side. Call light in reach. No further needs.
--- NOTE | 2020-07-30 23:12 | NUR ---
PT RESTING IN BED WITH EYS CLOSED, RR EVEN AND UNLABORED. HOB ELEVATED WITH ASPIRATION PRECAUTIONS, NO DISTRESS NOTED. CALL LIGHT IN REACH.
--- NOTE | 2020-07-30 23:13 | NUR ---
verbal report given to Divya Stokes to resume care for pt.
--- NOTE | 2020-07-30 23:15 | NUR ---
SHIFT REPORT RECEIVED FROM KENNETH VERONICA. PT RESTING IN BED, EYES CLOSED. NO NEEDS AT THIS TIME. CALL LIGHT IN REACH.
--- NOTE | 2020-07-31 00:33 | NUR ---
PT RESTING IN BED, EYES CLOSED. RR EVEN, UNLABORED. CALL LIGHT IN REACH.
--- NOTE | 2020-07-31 00:40 | NUR ---
PT CALLS TO ASK RN TO COME CHECK HE "HAS NOT PULLED ANYTHING OUT." PENA AND IV INTACT, WNL. WARM BLANKET PROVIDED. NO OTHER NEEDS. CALL LIGHT IN REACH.
--- NOTE | 2020-07-31 02:50 | NUR ---
ASSESSMENT, VS AND I&O COMPLETED. PENA WNL. IV WNL. LUNGS CLEAR, HEART TONES DIMINISHED. ABD SOFT, NONTENDER. SCROTUM HAS GENERALIZED EDEMA. BLE HAVE 3+ EDEMA. CMS INTACT. PT STATES HE DOES NOT WANT TO DRINK WATER BECAUSE "I'LL JUST PEE IT OUT." EDUCATION PROVIDED. PILLOWCASE PLACE IN GROIN FOLDS FOR COMFORT. NO OTHER NEEDS AT THIS TIME. CALL LIGHT IN REACH.
--- NOTE | 2020-07-31 05:00 | NUR ---
PT RESTING IN BED, EYES CLOSED. BECKY WNL. RR EVEN, UNLABORED. CALL LIGHT IN REACH.
--- NOTE | 2020-07-31 05:52 | NUR ---
PT SLEPT WELL THIS SHIFT. PT HAS BEEN ANXIOUS ABOUT WHEN THE PENA CAN BE TAKEN OUT, EDUCATION PROVIDED. IV WNL. PENA WNL. VSS. UOS. GENERALIZED SCROTAL EDEMA UNCHANGED. 3+ BLE UNCHANGED BUT PT FEELS THE EDEMA HAS GONE DOWN IN HIS THIGHS.
--- NOTE | 2020-07-31 06:19 | NUR ---
VS AND I&O COMPLETED. WARM BLANKETS PROVIDED. NO OTHER NEEDS. CALL LIGHT IN REACH.
--- NOTE | 2020-07-31 07:05 | NUR ---
In room for shift report. Pt report included: Pt wants his boucher out, says it hurts when he pees. Pt was slightly frustrated throughout the night but in content in bed now. Table and calll ight within reach.
--- NOTE | 2020-07-31 07:33 | NUR ---
BLOOD SUGAR CHECK DUE. THIS RN TO ROOM. PT RESTING WITH EYES CLOSED, RESPIRATIONS EVEN AND UNLABORED. PT AWAKENS TO VOICE AND LIGHT TOUCH. BLOOD SUGAR TAKEN. PT COMPLAINTS ABOUT DISCOMFORT FROM PENA "WHEN I GO." PT ENCORUAGED TO RELAX BLADDER. REPOSITIONING OFFERED, DECLINED. PT WATCHING TV. NO ADDITIONAL REQUESTS OR COMPLAINTS AT THIS TIME. CALL LIGHT WITHIN REACH. BED RAILSUP.
--- NOTE | 2020-07-31 08:18 | NUR ---
Pt resting in bed, hob elevated. Patient's respirations are even and non labored. No distress noted. Flacc 0/10. Personal supplies and call light within reach. No needs at this time.
--- NOTE | 2020-07-31 08:30 | NUR ---
To room for rounding. Pt in bed, denies pain and nausea at this time. Pt having breakfast, inbed, table and call light within reach.
--- NOTE | 2020-07-31 09:40 | NUR ---
2PA WITH RN TO BARTHROOM USING CANE, BACK TO BED. LINEN CHANGE. PENA EMPTIED. PATIENT NOT HAPPY ABOUT HAVING PENA . CALL LIGHT IN REACH, NO OTHER NEEDS AT THIS TIME
--- NOTE | 2020-07-31 10:00 | NUR ---
In room for assessment and med pass. Pt able to take all meds without difficulty. Pt would prefer the boucher out, but understands the purpose for it. Pt assessment complete, pt VSS, no further needs at this time. Pt given warm blankets and fresh water, repositioned to comfort. Pt in bed, side rails up x3, table and call light within reach.
--- NOTE | 2020-07-31 12:04 | NUR ---
In room for rounding. Pt denies pain and nausea at this time. Side rails up x3, table and call light within reach.
--- NOTE | 2020-07-31 12:31 | NUR ---
BLOOD SUGAR CHECK DUE. PT RESTING IN BED. PT CONTNUES TO COMPLAIN ABOUT PENA CATHETER. CBG TAKEN NOW 103. PT STATES HE DOES NOT LIKE HIS LUNCH ORDER AND DID NOT RECEIVE WHAT HE ORDRED. DIETARY CALLED WITH REPLACEMENT ORDER. PT DENIES ADDITIONAL REQUESTS OR COMPLAINTS. CALL LIGHT WITHIN REACH. BED RAILS UP.
--- NOTE | 2020-07-31 13:17 | NUR ---
In room for medical sales. Pt in bed, having lunch late. Pt able to get med without difficulty. Pt denies pain and nausea. Pt in bed, refuses chair, table and call light within reach.
--- NOTE | 2020-07-31 13:55 | NUR ---
PATIENT CALLED BR ASSISTANCE. RN TO [place]/C BECKY. 2PA TO BR.
--- NOTE | 2020-07-31 14:00 | NUR ---
Edmondson catheter removed by fidel Garcia per provider order. Per report catheter tip intact. Pt tolerated well.
--- NOTE | 2020-07-31 14:14 | NUR ---
Bilat compression wraps placed to LE at this time, per provider order. Patient tolerated well.
--- NOTE | 2020-07-31 16:00 | NUR ---
Urinal emptied at this time. Warm blanket provided per pt request. Pt reports urine flow has improved since boucher removal. No further needs at this time. Personal supplies and call light within reach.
--- NOTE | 2020-07-31 17:32 | NUR ---
PATIENT AWAKE IN BED, VITALS AND I&OS CHARTED. PATIENT HAS LITTLE INTAKE THIS AFTERNOON - STATED HE IS NOT INTERESTED IN EATING OR DRINKING MUCH, HE DOESN'T WANT TO HAVE AN "ACCIDENT IN BED". ATE NO LUNCH, OR DINNER. IS USING URINAL FINE. CALL LIGHT IN REACH, NO OTHER NEEDS AT THIS TIME.
--- NOTE | 2020-07-31 19:25 | NUR ---
Pt lying in bed. Shift report recieved by RN. White board cleared. Wraps intact LBE. Swelling and redness on scrotum noted. Call light in reach. No further needs.
--- NOTE | 2020-07-31 21:30 | NUR ---
IN TO GET VITALS FOR RN, I&Os ARE IN, CHAT WITH PT FOR PT'S COMPANY, TALKED ABT THE ML RESTRICTION AND WHY I WAS CHECKING THE NUMBERS, FRESH WATER GIVEN PER RN AND RESTRICTION SHEET, RN IN TO ASSESS PT AND PROVIDE PM MEDS, NO FURTHER NEEDS AT THIS TIME
--- NOTE | 2020-07-31 21:45 | NUR ---
Pt lying in bed. Assessment complete. Refuses taking Eliquis, believes it causes redness on BLE. Education provided. Pt verbalized understanding and continues to refuse.Scheduled meds given. I and O's complete. VS stable. Wraps intact and some swelling +1 on BLE. Redness and swelling noted on scrotum. Nystatin powder administered. Pt denies pain. Call light in reach. No further needs.
--- NOTE | 2020-07-31 23:24 | NUR ---
IN PT RM, PT CALLED, FELT LIKE HAVING A BM, UP TO THE TOILET SBA WITH CANE, NO BM AT THIS TIME, PT AMBU IN RM, NEEDED CELL PHONE PLUGGED IN, TRIED VOIDING MORE, NO OUTPUT, REQUESTING BREAKFAST, PT SEEMS CONFUSED AT THE TIME, THOUGHT IT WAS ALMOST LUNCHTIME, REOIRENTED TO TIME, PT REQUESTING SNACK, TALKING ABT HIS FOOD ALLERGY, HOW FOOD DOESNT AGREE WITH HIS STOMACH AT TIMES, NOW PT FEELS LIKE WALKING IN HALLS LATER, TOLD PT TO CALL WHEN READY, PT EATING JELLO AT THIS TIME, NO FURTHER NEEDS AT THIS TIME
--- NOTE | 2020-08-01 00:54 | NUR ---
PT LYING IN BED. EYES CLOSED. HOB ELEVATED. RR WNL WITH UNLABORED BREATHING. CALL LIGHT IN REACH.
--- NOTE | 2020-08-01 01:27 | NUR ---
PT LYING AND REPOSITIONED IN BED. DENIES PAIN. NO CHANGES ON SCROTUM AND WRAPS INTACT ON BLE +1 PITTING EDEMA.
--- NOTE | 2020-08-01 03:44 | NUR ---
ROUNDED PT LYING IN BED. EYES CLOSED WITH HOB ELEVATED. RR WNL WITH UNLABORED BREATHING. NO S/S OF SOB. WRAPS ON BLE INTACT. CALL LIGHT IN REACH.
--- NOTE | 2020-08-01 06:14 | NUR ---
PT LYING IN BED. DAILY WEIGHT DONE. ASSESSMENT COMPLETE. DECREASED SWELLING ON SCROTUM WITH REDNESS. VS STABLE. I AND O'S DONE. COMPRESSED WRAPS INTACT ON BLE. NO PITTING EDEMA NOTED. REPOSITIONED PT IN BED, LINENS CHANGED. CALL LIGHT IN REACH. NO FURTHER CONCERNS.
--- NOTE | 2020-08-01 06:17 | NUR ---
IN RM WITH RN TO GET VITALS, I&Os DONE, ML RESTRICTION RESTARTED PER 0600, FRESH ICE WATER GIVEN, STANDING WEIGHT TAKEN AT THIS TIME, NO FURTHER NEEDS AT THIS TIME
--- NOTE | 2020-08-01 06:42 | NUR ---
PT 1PA/CANE, CALLS APPROPRIATLY. POOR APPETITE, 60g CARB DIET WITH 2G SODIUM DIET. 1600ML FLUID RESTRICTION. ENCOURAGE FLUID INTAKE. WRAPS INTACT ON BLE WITH NO PITTING EDEMA. REDNESS AND SWELLING ON SCROTUM NOTED, NYSTATIN POWDER ADMINISTERED. EDUCATION PROVIDED FROM REFUSING ELIQUIS. DENIES PAIN.
--- NOTE | 2020-08-01 07:40 | NUR ---
REPORT RECEIVED. PT IN BED AWAKE. DENEIS PAIN. BREAKFAST ORDERED. CALL LIGHT IN REACH.
--- NOTE | 2020-08-01 08:54 | NUR ---
PATIENT SITTING UP IN BED. VITAL SIGNS AND I&O DONE. CALL LIGHT WITHIN REACH. NO OTHER NEEDS AT THIS TIME
--- NOTE | 2020-08-01 09:40 | NUR ---
IN FOR ASSESSMENT AND MEDICATION ADMIN. PT WITH LEFT DROOLING AND DROOP NOT NOTED IN PREVIOUS ASSESSMENTS VIEWED. LEFT SIDED WEAKNESS. ALSO NOTED SOME SLIGHT SLUR IN SPEACH. PT WITH HX OF STROKE. EMILEE NOTIFIED. DR HEBERT IN TO ASSESS PT. THINKS THIS MIGHT BE RESIDUALS FROM PREVIOUS STROKE. NO NEW ORDERS.
--- NOTE | 2020-08-01 11:31 | NUR ---
PT AMBULATED HALLS WITH MANAGER HOUSE FOR FOUR LAPS. TOLERATING WELL. NOW SITTING UP IN CHAIR.
--- NOTE | 2020-08-01 13:24 | NUR ---
PT OUT WORKING WITH PHYSICAL THERAPY.
--- NOTE | 2020-08-01 14:02 | NUR ---
Patient sitiing up in bed, alert and oriented x4. Pt is on room air, respirations are even and non labored. Lower legs are wrapped; cms intact. Good pedal pulse bilat. Pt reports his legs at times bother him due to the compression wraps. Both wraps adjusted to comfort at this time. Patient denies needs. Personal supplies and call light within reach.
--- NOTE | 2020-08-01 18:19 | NUR ---
Patient in bed watching TV. Pt denies pain at this time. Lower legs wrapped at this time, edema noted to be lessening. cms intact to bilat legs. Pt has no needs. Personal supplies within reach.
--- NOTE | 2020-08-01 19:05 | NUR ---
PT LYING IN BED. SHIFT REPORT RECIEVED BY RN. WHITE BOARD CLEARED. REDNESS AND NO SWELLING NOTED ON BLE, WRAPS INTACT. SOME SWELLING ON SCROTUM WITH REDNESS. CALL LIGHT IN REACH. NO FURTHER NEEDS.
--- NOTE | 2020-08-01 21:50 | NUR ---
PT LYING IN BED. ASSESSMENT COMPLETE. SCHEDULED MEDS GIVEN. I AND O'S DONE. NO CHANGES ON SCROTUM, NYSTATIN POWDER ADMINISTERED. REPLACED WRAPS ON BLE. SWELLING NOTED ON L UPPER ARM. ELEVATED PT ARM ON PILLOW. PT DENIES PAIN. CALL LIGHT IN REACH. NO FURTHER NEEDS.
--- NOTE | 2020-08-01 23:43 | NUR ---
PT LYING IN BED. EYES CLOSED. RR WNL WITH UNLABORED BREATHING. CALL LIGHT IN REACH.
--- NOTE | 2020-08-02 02:41 | NUR ---
PT LYING IN BED. EYES CLOSED. RR WNL WITH UNLABORED BREATHING. CALL LIGHT IN REACH.
--- NOTE | 2020-08-02 03:02 | NUR ---
PT LYING IN BED. URINALS EMPTIED PER REQUEST. ASSESSMENT COMPLETED. PUDDING GIVEN. NO CHANGES ON SCROTUM. REED WRAPS INTACT ON BLE. CALL LIGHT IN REACH. NO FURTHER CONCERNS.
--- NOTE | 2020-08-02 04:03 | NUR ---
PT LYING IN BED. EMPTIED URINAL PER REQUEST. REPOSITIONED IN BED. RR WNL WITH UNLABORED BREATHING. CALL LIGHT IN REACH.
--- NOTE | 2020-08-02 05:49 | NUR ---
PT 1P STANDBY/FWW TO THE BATHROOM. IV SALINE LOCKED. SWELLING ON LEFT ARM. ELEVATED WITH PILLOWS. NO CHANGES ON SWELLING OF SCROTUM. REED WRAPS INTACT ON BLE. ADA DIET. TOLERATING WELL. SLEPT THROUGHOUT THE NIGHT. VS STABLE.
--- NOTE | 2020-08-02 06:59 | NUR ---
AMBULATED PT IN THE WANG. TOLERATED WELL. PT REPOSITIONED IN BED. CALL LIGHT IN REACH.
--- NOTE | 2020-08-02 08:17 | NUR ---
REPORT RECEIVED. PT SITTING UP IN BED AFTER WALK THIS MORNING. CALL LIGHT IN REACH. DENIES NEEDS.
--- NOTE | 2020-08-02 08:26 | NUR ---
PATIENT SITTING UP IN BED EATING BREAKFAST. CALL LIGHT IN REACH. NO FURTHER NEEDS AT THIS TIME.
--- NOTE | 2020-08-02 09:50 | NUR ---
AMBUALTED PATIENT IN HALLS FOR 4 LAPS. BACK TO BED. MAG STARTED. PT SITTING AT EDGE OF BED. CALL LIGHT IN REACH.
--- NOTE | 2020-08-02 10:00 | NUR ---
Spoke with pt for CM assessment. He states he lives in [place] in a house. States he drives and grocery shops. States he is active, but has not been going out due to the weather. Pt would like a walker, and PT in agreement. Pt is very difficult to obtain information from, called and spoke with his exwife. She states pt cannot drive, his food comes from a food box q 2 weeks from [email or web address]. Food is frozen meals of [employer]. She also states pt has not bathed or showered in 2 months. She has found him incontinent of stool and wearing stool soiled. She cannot assist all the time. She states he is frequently confused. Pt has refused SNf and PENITENTIARY. I requested she call [facility] to see what programs he could qualify for. Phone numbers given and Jacob will call. Dr. Robison updated. 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 Spoke with OT and she will complete a mini mental. Pt won't dc today.
--- NOTE | 2020-08-02 11:31 | NUR ---
Called and spoke with [employer] clinical research tech. She will see pt.
--- NOTE | 2020-08-02 12:43 | NUR ---
Prescription, chart notes, PT/OT eval and notes face sheet faxed to [facility].
--- NOTE | 2020-08-02 13:39 | NUR ---
PATIENT UP TO BATHROOM FOR SHOWER, 1PA FWW. ASSISTED PATIENT WITH SHOWER AND SHAVE. NEW GOWN AND ATTENDS PROVIDED. ORAL CARE, OVIDIO CARE, SKIN CARE, SHAVE DONE. LINENS CHNAGED. PATIENT NOW BACK TO CHAIR. LOTION PUT ON LEGS AND RN IN ROOM TO WRAP LEGS. CALL LIGHT IN REACH. NO FURTHER NEEDS AT THIS TIME.
--- NOTE | 2020-08-02 13:51 | NUR ---
ASSSITED PT TO SHAVE AND SHOWER. LEGS LOTIONED AND REWRAPPED. PHYISICAL THERAPY IN ROOM TO WORK WITH PT NOW.
--- NOTE | 2020-08-02 15:04 | NUR ---
PATIENT IN BED WATCHING TV. HE JUST USED THE BATHROOM AFTER WORKING WITH PT. STATES HE IS "TAKING SO MUCH LASIX" AND HAS LOST A LOT OF FLUID WEIGHT. HE LIVES ALONE, DOES HIS OWN GROCERY SHOPPING AND GETS A FOOD BOX ONCE A WEEK FROM [employer]. IT HAS FROZEN MEALS SUCH HUNGRY MAN OR NIRMALA CALLENDAR'S MEALS, PALESTINIAN CHEESE, AND LITTLE CARTONS OF MILK. BREAKFAST AT HOME MIGHT BE SCRAMBLED EGGS WITH A LITTLE DICED UP VALADEZ OR HAM. LUNCH MIGHT BE A TUNA OR CHICKEN SANDWICH. HE LIKES FLAVOR, BUT KNOWS HE SHOULDN'T BE USING SO MUCH SALT OR EATING SALTY THINGS. HIS FRIEND USES SEA SALT AND PATIENT SAID HE TRIED IT AND IT WAS ALRIGHT, A LITTLE DIFFERENT THAN REGULAR SALT. I TOLD HIM SEA SALT IS NOT SALT-FREE, SO HE STILL NEEDS TO WATCH IT. HE RARELY EATS CANNED SOUPS. HE IS READING LABLES. I TOLD HIM HE CAN EAT FRUIT, YOGURT, LOW-SODIUM CRACKERS, OR BRE CRACKERS FOR SNACKS. I LEFT HIM A LOW-SODIUM DIABETIC SNACK LIST. HE SAID HE CAN EAT GLUTEN, SO I'M NOT SURE WHAT HIS HISTORY IS GLUTEN LISTED AN ALLERGY HERE. HE SAID HE EATS CLUB CRACKERS AT TIMES WHICH CONTAIN GLUTEN. PATIENT ASKING FOR A NURSE TO HELP HIM ADJUST HIS UNDERWEAR SO I LEFT A FOLDER ON HIS CHAIR FOR HIM TO TAKE HOME, THEN WENT TO TELL HIS NURSE. RAILROAD CAR TRUCK BUILDER IN TO TAKE HIS DINNER AND BREAKFAST ORDER, PATIENT SAID HE DIDN'T THINK HE WANTED ANYMORE FOOD TONIGHT. HE PUT IN A BREAKFAST ORDER OF A PANCAKE WITH SF SYRUP, FRUIT, AND A BLUEBERRY YOGURT.
--- NOTE | 2020-08-02 18:16 | NUR ---
PATIENT IND IN ROOM. PATIENT IN BED WATCHING TV AT THIS TIME. CALL LIGHT IN REACH. NO FURTHER NEEDS AT THIS TIME.
--- NOTE | 2020-08-02 19:50 | NUR ---
REPORT RECEIVED FROM DAY SHIFT RN. PT LYING IN BED ALERT AND ORIENTED WATCHING TV. URINAL EMPTIED. ASSISTED PT TO REPOSITION. DENIES NEEDS AT THIS TIME. WHITE BOARD UPDATED. CALL LIGHT IN REACH.
--- NOTE | 2020-08-02 22:00 | NUR ---
EVENING ASSESSMENT COMPLETE. SCHEDULED MEDS ADMINISTERED PER EMAR. PT DENIES PAIN OR NAUSEA. DENIES SOB. GROIN AREA CLEANED WITH WARM WASHCLOTH AND NYSTATIN POWDER APPLIED. MINIMAL REDNESS NOTED. EDEMA NOTED IN BLE AND SCROTAL AREA. BLE WRAPPED AND ELEVATED. ASSISTED PT TO REPOSITION. PT WELL WITHIN FLUID 1600 ML FLUID RESTRICTION. DENIES FURTHER NEEDS. CALL LIGHT IN REACH.
--- NOTE | 2020-08-03 00:45 | NUR ---
PT RESTING IN BED WITH EYES CLOSED. RESPIRATIONS EVEN AND UNLABORED.
--- NOTE | 2020-08-03 03:20 | NUR ---
PT RESTING IN BED WITH EYES CLOSED, NAD. LIGHT ON AND HOB ELEVATED PER PT REQUEST.
--- NOTE | 2020-08-03 05:29 | NUR ---
VS AND I&O COMPLETE. DAILY WEIGHT OBTAINED. PT REPOSITIONED IN BED. ABRASION NOTED ON LEFT ELBOW FROM USING ELBOW TO REPOSITION SELF, ALLEVYN PLACED. PT DENIES PAIN OR NAUSEA. FRESH LIQUIDS PROVIDED. PT WELL WITHIN DAILY FLUID RESTRICTION. NO FURTHER NEEDS. CALL LIGHT IN REACH.
--- NOTE | 2020-08-03 07:53 | NUR ---
THIS RN RECEIVED REPORT FROM MARGO VERONICA. THIS RN IN TO ROOM WITH [facility] CROSSING WATCHMAN TO TO CHECK ON PT. PT APPEARS TO BE RESTING COMFORTABLY WITH RESPIRATIONS NOTED
--- NOTE | 2020-08-03 09:36 | NUR ---
THIS RN IN PTS ROOM WITH [facility] LINE SERVICE PERSON ENOCH, BOTH STAFF MEMEBERS IN ROOM TO GIVE PT HIS MORNING MEDS. PT STATING "I AM ABOUT TO PUT ON MY CLOTHES AND WALK OUT OF HERE" PT STATES THAT HE IS FRUSTRATED THAT HE HAD TO PEE SO MUCH LAST NIGHT. PT ALSO STATES "THE DOCTOR SAT RIGHT THERE AND TOLD ME I WAS GOING HOME TODAY" THIS RN AND [facility] LINE SERVICE PERSON ATTEMPTED TO EDUCATE PT ON MEDICATIONS, ESPECIALLY THE IV LASIX, PT UNRECEPTIVE TO EDUCATION, PT WANTING TO GO HOME BECAUSE HE STATES THAT HE HAS BILLS THAT HE NEEDS TO PAY. THIS RN CALLED TO UPDATE HIM ON PT REFUSING MEDICATIONS. GAVE THIS RN A VERBAL ORDER OF 60MG PO LASIX.
--- NOTE | 2020-08-03 10:25 | NUR ---
PT UP AMBULATING THE HALLS WITH [facility] INSPECTOR [employer] ENOCH. PT TOELRATING WELL AND DOES NOT APPEAR TO HAVE SHORTNESS OF BREATH
[2020-08-03] MEDS ORDERED: XARELTO10 MG PO (11:45)
[2020-08-03] MEDS ORDERED: KLOR-CON20 MEQ PO (11:46)
[2020-08-03] MEDS ORDERED: LASIX20 MG PO (11:47)
--- NOTE | 2020-08-03 12:30 | NUR ---
Pt walking in the evangelista with PT. Plans on dc today. I did follow up with JACOB, Kristine Degroot. She belives pt would qualify for extermination inspector medicaid. Pt has been scheduled for case management and evaluation next week. They will contact patient and he will need to agree to case management.
== END 2020-08-03 12:50 | disposition home or self-care (01) | DRG 292 ==
LOC: ED 08:18 → MS 10:44
PROVIDERS: ADMIT Internal Medicine; ATTEND Internal Medicine
DX: I11.0 Hypertensive heart disease with heart failure (principal); I69.354 Hemiplegia and hemiparesis following cerebral infarction affecting left non-dominant side; I48.21 Permanent atrial fibrillation; Z20.828 Contact with and (suspected) exposure to other viral communicable diseases; I50.23 Acute on chronic systolic (congestive) heart failure; E11.9 Type 2 diabetes mellitus without complications; E78.5 Hyperlipidemia, unspecified; Z79.899 Other long term (current) drug therapy; Z79.01 Long term (current) use of anticoagulants; Z79.84 Long term (current) use of oral hypoglycemic drugs
CPT/HCPCS: 36415; 51702; 71045; 80048; 80053; 81001; 83036; 83735; 83880; 85025; 93005; 93010; 93306; 97110; 97116; 97162; 97165; 99285-25; C9803; J1940; J3475; U0003

== ENCOUNTER 2020-12-24 07:46 | Inpatient (IN) | payer MEDICARE, MEDICAID ==
[~2020-12-24] VITALS: Ht 185.4 cm; Wt 81.2 kg
[~2020-12-24 07:46] MED LIST changes: +ATORVASTATIN CA80 MG PO; +DOXYCYCLINE HY100 MG PO; +ELIQUIS5 M1 PO; +KLOR-CON 1010 MEQ PO; +KLOR-CON20 MEQ PO; +LASIX20 MG PO; +METFORMIN HCL500 MG PO; +PEPCID20 MG PO; +TOPROL XL50 MG PO; +XARELTO10 MG PO
--- NOTE | 2020-12-24 12:05 | NUR ---
PATIENT ARRIVES FROM ER WITH Marquez KELLOGG RN, TO BE ADMITTED TO ROOM 114 FOR PIERCE UNDER CARE OF DR. HEBERT. ASSIST TO BED, ASSESSMENT COMPLETED. VITALS OBTAINED, PLACED ON TELEMETRY.
[2020-12-24] MEDS ORDERED: K-TAB10 MEQ PO (12:16)
[2020-12-24] MEDS ORDERED: LASIX20 MG PO (12:17)
--- NOTE | 2020-12-24 13:27 | NUR ---
MED REC COMPLETE
--- NOTE | 2020-12-24 14:11 | NUR ---
Ambulating in evangelista with PT.
--- NOTE | 2020-12-24 14:29 | NUR ---
SPOKE WITH PATIENT IN ROOM. PATIENT IN BED, HAS JUST BEEN ADMITTING BY NURSING. PATIENT LIVES ALONE. HAS NO CHILDREN. HAS AN X- WHO LIVE ACROSS THE STREET WHO TRIES TO HELP HIM. HE STATES HE FEELS VERY BAD ASKING HER, HE STATES THEIR SPLIT WAS "ALL MY FAULT AND SHE IS TOO KIND TO HELP ME". HE NO LONGER HAS A CAR. HE IS RETIRED. HE STATES HE HAS A CANE, WALKER, AND A SHOWER BENCH. HE STATES HIS LEGS "ARE NOT WORKING LATELY". HE HAS STAIRS INTO APARTMENT WITH RAIL. HIS ONLY OTHER STAIRS ARE TO THE [place] AND HE CANNOT USE THEM LATELY. HE STATES HE FEELS HE HAS MONEY FOR MEDS/FOOD/UTILITIES BUT HE GETS FOOD BOX HELP THROUGH HIS X-. HE STATES HE CANNOT TAKE TAXI ANY LONGER BECAUSE HE CANNOT GET INTO THE BACK OF A TAXI BECAUSE OF HIS LEGS. HE STATES HIS PCP IS DR ALICIA. HE IS NOT SURE WHEN HE LAST SAW HER. HE STATES HE HAS FIRST COVID VACCINE AT [facility] AND IS SUPPOSED TO RETURN ON THE FOR SECOND INJECTION. HE STATES HE HASN'T BEEN EATING WELL HE HAS HAD MANY STOMACH ISSUES AND IS TRYING TO AVOID SOME FOODS. WE DISCUSSED HIS PREFERENCES FOR DISCHARGE. HE WOULD PREFER TO RETURN HOME. HE DOES THINK HE MAY NEED SOME HELP. CM WILL CONTINUE TO FOLLOW.
--- NOTE | 2020-12-24 14:40 | NUR ---
PATIENT SITTING UP IN BED, JUST FINISHED WORKING WITH PT. PENA CATHETER EMPTIED WITH 150 ML OF URINE OUTPUT SINCE ADMISSION. NO CHANGES FROM INITIAL ASSESSMENT AT THIS TIME. DENIES NEEDS.
--- NOTE | 2020-12-24 15:55 | NUR ---
Patient heartrate to 30 bpm, Dr. Robison previously notified of bradycardia by CCU nurses and Marquez Knox, RN/CHarge nurse. Sitting in bed, asymptomatic, BP WNL. Urine output for last hour 45 mL.
--- NOTE | 2020-12-24 16:41 | NUR ---
Dr. Robison notified by Naman Lenz RN, of continued heartrate in 30-40's. Informed of blood pressure and asymptomatic as well. No new orders.
--- NOTE | 2020-12-24 17:20 | NUR ---
Attempted occupational therapy evaluation today but patient reported being too fatigued to participate.
--- NOTE | 2020-12-24 17:26 | NUR ---
Patient in bed. 45 mL urine in last 45 minutes noted. Continues on IV fluids. Medications given as prescribed. Patient takes medications one at a time. Urine with pink tinge, did get pulled during PT, will continue to monitor.
--- NOTE | 2020-12-24 18:11 | NUR ---
Patient admitted this AM for PIERCE. Edmondson catheter in place, was pulled during PT, now has pink tinged urine which is slowly clearing. Potassium replacement per IV and PO medications. Currently on telemetry with heartrates ranging from 30-50, in a-fib, which is chronic. Poor appetite, encouraged to eat. Urine output averaging 40 mL/hour since admission.
--- NOTE | 2020-12-24 19:22 | NUR ---
SHIFT REPORT RECEIVED FROM WILFRED VERONICA. PT RESTING IN BED. NO NEEDS AT THIS TIME. CALL LIGHT IN REACH.
--- NOTE | 2020-12-24 20:50 | NUR ---
in with rn to get vitals, i&os are done, ice water refilled, no further needs
--- NOTE | 2020-12-24 20:57 | NUR ---
ASSESSMENT, VS AND I&O COMPLETED. IV WNL, CDI, FLUSHED WELL. IV FLUIDS INFUSING PER ORDER. GCS 15, A&O X4. PT IS ANXIOUS AND STATES HE HAS 5/10 LEG PAIN, PRN TYLENOL PROVIDED. LUNGS CLEAR. HEART TONES IRREGULAR. BRADYCARDIA @52. ABD SOFT, NONTENDER, BOWEL TONES ACTIVE, PT STATES NORMAL. 3+ BLE EDEMA. LEGS WRAPPED. WOUND ON LEFT LEG NOTED. MULTIPLE ABRASION ON KNEES AND ELBOWS NOTED. NO OTHER NEEDS AT THIS TIME. CALL LIGHT IN REACH.
--- NOTE | 2020-12-24 23:09 | NUR ---
SCHEDULED MEDS PROVIDED. PT REPOSITIONED. NO OTHER NEEDS. CALL LIGHT IN REACH.
--- NOTE | 2020-12-24 23:50 | NUR ---
in with rn, this countersinker balance screw hole asked pt if he wanted to used his scds, pt decided to decline at this time, rn checking iv site
--- NOTE | 2020-12-25 02:00 | NUR ---
IN TO GET VITALS, PENA EMPTIED, PT REASSURED MANY TIMES, NO FURTHER NEEDS AT THIS TIME
--- NOTE | 2020-12-25 04:00 | NUR ---
NEW BAG IV FLUIDS PROVIDED. ASSESSMENT COMPLETED. GCS 15, A&O X4. PT STILL ANXIOUS, ASKS MANY QUESTIONS. STILL DECLINES SCDs, EDUCATION PROVIDED. LUNGS CLEAR. HEART TONES IRREGULAR. TELE BRADYCARDIA @ 44. ABD SOFT, NONTENDER, PT STATES NORMAL, BOWEL TONES ACTIVE. PT STATES HE HAS NUMBNESS IN FEET, PULSE AND MOTOR INTACT. CMS INTACT IN UPPER EXTREMITIES. RLE 2+ EDEMA, LLE 3+ EDEMA. BLE WRAPPED, REDNESS, DRY. L AC IV LEAKING, DCd WNL. L WRIST IV INFUSING PER ORDERS. NO OTHER NEEDS AT THIS TIME. CALL LIGHT INREACH.
--- NOTE | 2020-12-25 05:59 | NUR ---
VS AND I&O COMPLETED. PT WALKED 2 LAPS AROUND FINCH. PT TOLERATED WELL. RT IN ROOM TO COMPLETE ORDERED ECG.
--- NOTE | 2020-12-25 09:15 | NUR ---
Vitals obtained, assessment completed, AM medications given. Takes without difficulty. NS to eyes bilaterally for itchiness. Redness to right eye noted with drainage. BP low, Dr. Robison notified of both. Patient denies other needs, call light in reach. Bed rails up X2.
--- NOTE | 2020-12-25 10:29 | NUR ---
Notified by NANCY Serrato, patient had incontinent episode of stool. Jacque-care completed by NANCY Serrato. Sonja changed by this nurse. Wound to R buttock stage 2, healing well.
--- NOTE | 2020-12-25 11:51 | NUR ---
Notified Rani, director airport operations [employer], of need for ultrasound.
--- NOTE | 2020-12-25 13:52 | NUR ---
LEFT LEG RE-WRAPPED WITH CLEAN REED WRAP AFTER ULTRASOUND COMPLETED. XARELTO GIVEN, INSTRUCTED ON USE AND SIDE EFFECTS. SALINE TO EYES BILAT AT THIS TIME.
--- NOTE | 2020-12-25 15:14 | EKG ---
[facility] [address] [place] [address] Signed Atrial fibrillation with slow ventricular response Low voltage QRS Prolonged QT Septal infarct , age undetermined Abnormal ECG When compared with ECG of 30-JUL-2020 08:51, Septal infarct is now present Nonspecific T wave abnormality, worse in Inferior leads Nonspecific T wave abnormality, worse in Anterolateral leads QT has lengthened Confirmed by SRUTHI HEBERT DO ([id number]) on 12/25/2020 3:14:34 PM Electronically Signed By: SRUTHI HEBERT DO 12/25/20 1514 PATIENT NAME: HENNY SAUCEDA Electrocardiogram DATE OF : 45 PHYSICIAN: SRUTHI HEBERT DO REPORT #: [id number] REPORT IS CONFIDENTIAL AND NOT TO BE RELEASED WITHOUT AUTHORIZATION
--- NOTE | 2020-12-25 15:17 | EKG ---
[facility] [address] [place] [address] Signed Atrial fibrillation with slow ventricular response Low voltage QRS Nonspecific T wave abnormality Abnormal ECG When compared with ECG of 24-DEC-2020 08:23, (Unconfirmed) Criteria for Septal infarct are no longer present Nonspecific T wave abnormality, improved in Inferior leads Nonspecific T wave abnormality no longer evident in Lateral leads QT has shortened Confirmed by SRUTHI HEBERT DO ([id number]) on 12/25/2020 3:17:25 PM Electronically Signed By: SRUTHI HEBERT DO 12/25/20 1517 PATIENT NAME: HENNY SAUCEDA Electrocardiogram DATE OF : 45 PHYSICIAN: SRUTHI HEBERT DO REPORT #: [id number] REPORT IS CONFIDENTIAL AND NOT TO BE RELEASED WITHOUT AUTHORIZATION
--- NOTE | 2020-12-25 15:46 | NUR ---
PATIENT REPOSITIONED IN BED, LEFT LEG REWRAPPED, RIGHT LEG WRAPS INTACT.
--- NOTE | 2020-12-25 17:38 | NUR ---
Calls multiple times today. Anxious intermittently throughout the day. Ultrasound of legs completed today, positive for DVT in left leg. Eliquis initiated. Continues with poor oral intake for water and food. Concerned he will be incontinent of stool. One incontinent stool episode this AM.
--- NOTE | 2020-12-25 19:25 | NUR ---
RECEIVED REPORT FROM GLENYS HARDIN. pt RESTING IN BED. CALL LIGHT AND POSSESSIONS WITHIN REACH. REQUESTS TO BE LEFT TO SLEEP. WHITEBOARD UPDATED.
--- NOTE | 2020-12-25 22:18 | NUR ---
CALL LIGHT ON. pt REQUESTED TO SPEAK WITH THIS RN. CONCERNED ABOUT HIS CELL PHONE CHARGING. PLUGGED IN AND CHARGING. CONCERNED ABOUT HIS IV FLUIDS AND PENA OUTPUT. REASSURED MULTIPLE TIMES. ASSESSMENT DONE. EDEMA NOTED ON BLE, LEGS WRAPPED. PENA CARE DONE. ASSISTED pt TO REPOSITIONED. NO FURTHER REQUESTS AT THIS TIME. CALL LIGHT WITHIN REACH. POSSESSIONS WITHIN REACH.
--- NOTE | 2020-12-26 00:18 | NUR ---
ROUNDED ON pt. RESTING IN BED WITH EYES CLOSED, RESPIRATIONS REGULAR AND UNLABORED. CALL LIGHT WITHIN REACH.
--- NOTE | 2020-12-26 00:50 | NUR ---
CALL LIGHT ON. pt REPORTED FEELING "TANGLED UP" ASSISTED WITH BLANKETS. REASSURED. CALL LIGHT WITHIN REACH.
--- NOTE | 2020-12-26 02:45 | NUR ---
ROUNDED ON pt. RESTING IN BED WITH EYES CLOSED, RESPIRATIONS REGULAR AND UNLABORED. CALL LIGHT WITHIN REACH.
--- NOTE | 2020-12-26 04:06 | NUR ---
pt IS ALERT AND ORIENTED BUT RESTLESS. CONTINUALLY MOVING. ABLE TO GIVE PLACE, AND DATE. ASSISTED TO REPOSITION MULTIPLE TIMES. NO OTHER CHANGES IN ASSESSMENT. CALL LIGHT WITHIN REACH.
--- NOTE | 2020-12-26 05:50 | NUR ---
ROUNDED ON pt. AWAKE. VITALS DONE. PENA EMPTIED. pt MORE ALERT AND LESS RESTLESS. ASKING QUESTIONS ABOUT FOOD OPTIONS. ALL QUESTIONS ANSWERED. CALL LIGHT WITHIN REACH. pt READING MENU.
--- NOTE | 2020-12-26 06:40 | NUR ---
PATIENT CALLED. BLANKET, SHEETS AND SIDE TABLE ALL WITHIN REACH. CALL LIGHT WITHIN REACH.
--- NOTE | 2020-12-26 07:30 | NUR ---
REPORT RECEIVED. PT RESTING IN BED WITH EYES CLOSED, BREATHING UNLABORED. CALL LIGHT IN REACH. WILL CONTINUE PLAN OF CARE
--- NOTE | 2020-12-26 08:40 | NUR ---
Medications administered. Pt up to chair with help of EGG PRODUCER, uses FWW, requires frequent reassurance and encouragement. REED wraps to both lower extremities placed per order. Wound visualized, see chart. Assessment complete. Pt currently on RA tolerating well. States no appetite, options provided. IVF infusing WNL. PT in room to work with pt
--- NOTE | 2020-12-26 11:24 | NUR ---
IV pump alarming, new bag IVF hung. Pt expresses concern about lunch order, discussed and confirmed with dietary. No other needs at this time.
--- NOTE | 2020-12-26 13:51 | NUR ---
Scheduled medication administered. Pt states anxious about having BM after eating lunch-- pt reminded of the importance of nutrition and assured that we will take care of his bowel needs when it occurs. Pt had approximately 25% of his lunch which consisted of potatoes, banana and yogurt. IVF infusing WNL. This RN sat at bedside to discuss medications, fluids, nutrition and plan of care. Pt agreeable.
--- NOTE | 2020-12-26 15:00 | NUR ---
Edmondson cath removed by this RN. Small amount blood noted as catheter taken out. Pt expresses concern about having to use the urinal or commode. Reassured. Saline eye drops provided for comfort as yellow/green discharge from both eyes noted and pt c/o discomfort. MD aware, no new orders. Pt resting in bed at this time, PRODUCE LABORER in room to assist with bed bath.
--- NOTE | 2020-12-26 16:20 | NUR ---
Discussed pt condition and plan of care with next of kin/person to notify, ex Girish. She would like a case management consult as she is concerned that pt is not safe to return home alone.
--- NOTE | 2020-12-26 19:37 | NUR ---
REPORT RECEIVED FROM DAY SHIFT RN. PT LYING IN BED RESTING WITH EYES CLOSED, NAD. NOT DISTURBED AT THIS TIME. CALL LIGHT IN REACH.
--- NOTE | 2020-12-26 22:08 | NUR ---
2 PA. PATIENT WAS UP TO BEDSIDE COMMODE. PATIENT ABLE TO VOID WITH SOME BOWEL MOVEMENT. PATIENT IS BACK IN BED. URINAL X2 ON BEDSIDE. CALL LIGHT AND SIDE TABLE WITHIN REACH.
--- NOTE | 2020-12-26 22:37 | NUR ---
EVENING ASSESSMENT COMPLETE. SCHEDULED MEDS ADMINISTERED PER EMAR. PRN ADMINISTERED FOR 8/10 LEFT SHOULDER/ARM PAIN. EDEMA NOTED IN LUE, ELEVATAED ON PILLOW. PT ALERT AND ORIENTED. ANXIOUS AT TIMES. PT REASSURED WITH ALL CARES AND GIVEN EXPLANATION OF MEDS PROVIDED. BLE ELVATED ON PILLOWS. REED WRAPS INTACT. ALLEVYN ON COCCYX INTACT. PT REPOSITIONED TO THE LEFT SIDE WITH PILLOWS. PERSONAL BELONGINGS IN REACH. LIGHTS LEFT ON AND CURTAIN OPEN PER PT REQUEST. CALL LIGHTS X 2 IN REACH.
--- NOTE | 2020-12-26 23:37 | NUR ---
BAG 2 OF 4 IV POTASSIUM INFUSING. PT JOANIE WELL. WARM BLANKETS PROVIDED.
--- NOTE | 2020-12-26 23:50 | NUR ---
PASSING BY THE ROOM, PATIENT SAW ME AND CALLED ME. PATIENT WANTED ONE OF HIS PILLOWS OFF FROM HIM AND PUT IT IN THE CHAIR STATED "DONT WANT ADD MORE WEIGHT ON ME." CONE. NO OTHER NEEDS AT THIS TIME.
--- NOTE | 2020-12-27 00:41 | NUR ---
BAG 3 OF 4 IV POTASSIUM WITH LIDOCAINE INFUSING PER ORDER. PT JOANIE WELL. ASSISTED TO REPOSITION IN BED. DENIES FURTHER NEEDS.
--- NOTE | 2020-12-27 01:54 | NUR ---
BAG 4 OF 4 IV POTASSIUM WITH LIDOCAINE INFUSING. PT JOANIE WELL. ASSISTED TO REPOSITION IN BED. DENIES FURTHER NEEDS AT THIS TIME. CALL LIGHT IN REACH.
--- NOTE | 2020-12-27 04:17 | NUR ---
PT RESTING IN BED WITH EYES CLOSED, NAD.
--- NOTE | 2020-12-27 05:00 | NUR ---
VS AND I&O COMPLETE. ASSISTED PT TO REPOSITION IN BED. LEFT ARM SWOLLEN AND RED, ELVATED ON PILLOW. BLE ELEVATED ON PILLOWS. REED WRAPS REMAIN IN PLACE ON BLE. PT DENIES FURTHER NEEDS. CALL LIGHT IN REACH.
--- NOTE | 2020-12-27 07:05 | NUR ---
REPORT RECEIVED. PT RESTING IN BED, ALLOWED TO REST AT THIS TIME. WILL CONTINUE PLAN OF CARE.
--- NOTE | 2020-12-27 08:45 | NUR ---
Scheduled medications administered, assessment complete. Pt able to stand with FWW, walk to doorway of room, return to bed. Pt expresses concern about being unsteady but has generally stable gait with the walker. IVF infusing WNL. Pt reassured and all cares explained, pt provided with all requests at this time. Call light in reach.
--- NOTE | 2020-12-27 09:24 | NUR ---
PATIENT HAD A LOOSE BOWEL AND VOIDED 300 ML X1 . HELPED BACK TO BED AND SETTLED. NOTHING ELSE NEEDED AT THIS TIME.
--- NOTE | 2020-12-27 09:58 | NUR ---
NOTICED PATIENT HAS SOME SUBSTANCE ON HIS NECK. THIS STAFF OFFERED TO HELP HIM WASH UP OR SHOWER PATIENT STATED HE DOESNT WANT TO SHOWER UNTIL HE DISCHARGES. WILL REAPPROACH AT ANOTHER TIME.
--- NOTE | 2020-12-27 11:31 | NUR ---
CHECKED IN WITH PATIENT WHO APPEARS TO BE RESTING.
--- NOTE | 2020-12-27 12:28 | NUR ---
EXTENDED CONVERSATION WITH PATIENT. HE IS HARD TO KEEP ON TRACK FOR DIRECT QUESTIONS. PATIENT WANDERS ONTO MANY SUBJECTS. IN REGARDS TO DISCHARGE, HE DOES NOT WANT TO GO TO [facility]TER REHAB. HE STATES DR HEBERT TOLD HIM HE IS GETTING MUCH BETTER SO HOME IN A COUPLE DAYS. ASKED IF HE WOULD HAVE ANY HELP IF NEEDED, HE STATES THREE DIFFERENT FRIENDS/NEIGHBORS WHO WILL HELP HIM. HE STATES HE WON'T BE GOING OUT MUCH FOR AWHILE AND THE ONLY STAIRS HE WOULD USE AFTER INSIDE ARE TO [place] AND HIS X- WILL BE DOING THAT FOR HIM. HE STATES HE CAN USE HIS WALKER IN THE HOUSE AND HE FEELS HE WOULD "BE OK GETTING AROUND HOME". DISCUSSED OPTIONS IF STILL NEEDING THERAPY, HE IS NOT "VERY KEEN" ON HOME HEALTH. HE NEVER DID ANSWER IF HE WOULD BE OPEN TO OUTPATIENT THERAPY DEPARTMENT. WE AGREED IN THE END TO SEE HOW HE IS DOING WITH THERAPY TOMORROW AND THEN HE MIGHT KNOW WHAT HIS PREFERENCE IS.
--- NOTE | 2020-12-27 13:20 | NUR ---
PATIENT IN BED AFTER PT VITALS TAKEN AND CHARTED ALONG WITH I&O'S. NOTHING ELSE NEEDED AT THIS TIME. FRESH WATER GIVEN
--- NOTE | 2020-12-27 15:44 | NUR ---
PATIENT VISITING WITH AN RN AT THESE ROUNDS
--- NOTE | 2020-12-27 15:45 | NUR ---
REPORT RECEIVED FROM RN. PT RESTING IN BED DENIES NEEDS OF. ASSESSMENT COMPLETE
--- NOTE | 2020-12-27 17:23 | NUR ---
PATIENTS VITALS ARE COMPLETED. PATIENT HAS A VISITOR AND WILL BE EATING DINNER SOON
--- NOTE | 2020-12-27 19:19 | NUR ---
REPORT RECEIVED FROM DAY SHIFT RN. PT LYING IN BED ALERT AND ORIENTED. DENIES NEEDS AT THIS TIME. WHITE BOARD UPDATED. CALL LIGHT IN REACH.
--- NOTE | 2020-12-27 20:20 | NUR ---
SCHEDULED MEDS ADMINISTERED. PT ANXIOUS THAT TAKING MEDICATIONS WILL RESULT IN LOOSE STOOL. ATTEMPTED TO PROVIDE EDUCATION AND REASSURANCE. PT NOT RECEPTIVE. ASSISTED TO REPOSITION IN BED. BLE WRAPPED IN REED WRAPS AND ELEVATED ON PILLOWS. LEFT ARM EDEMA NOTED. ARM ELEVATED ON PILLOW. IVF INFUSING. NO FURTHER NEEDS AT THIS TIME. CALL LIGHT AND PERSONAL BELONGINGS IN REACH.
--- NOTE | 2020-12-27 23:33 | NUR ---
PATIENT CALLED WANTS TO HAVE WATER. HE ALSO WANTED TO HAVE NEW CUP. PROVIDED.
--- NOTE | 2020-12-27 23:50 | NUR ---
ROUNDING ON PT. PT AWAKE IN BED WITH QUESTIONS REGARDING POTASSIUM SUPPLEMENTS, EDUCATION PROVIDED. ASSISTED TO REPOSITION IN BED. NO FURTHER NEEDS.
--- NOTE | 2020-12-28 03:14 | NUR ---
PT WITH LARGE PILE OF TISSUES ON BED SIDE TABLE THAT HAS MINIMAL AMOUNT OF BLOOD DUE TO WHAT PT REPORTS IS A BLOODY NOSE THAT HE HAS HAD CHRONICALLY SINCE CHILDHOOD. PT ANXIOUS ABOUT BEING ON "BLOOD THINNERS AND NOT BEING ABLE TO GET IT TO STOP". EDUCATION PROVIDED. NO CURRENT BLEEDING NOTED. ASSISTED AND ENCOURAGED PT TO REPOSITION SELF IN BED. PT ANXIOUS ABOUT MOVING HE IS AFRAID OF HAVING AN UNCONTROLLED BOWEL MOVEMENT. ATTEMPTED TO REASSURE PT THAT STAFF WILL ASSIST WITH BSC AND OVIDIO CARE IF NEEDED. PT CONTINUES TO BE ANXIOUS. ENCOURAGED PT TO TRY TO SLEEP. REQUESTS LIGHTS LEFT ON AND CURTAIN OPEN.
--- NOTE | 2020-12-28 05:06 | NUR ---
WARM BLANKET PROVIDED. FRESH ICE WATER PROVIDED.
--- NOTE | 2020-12-28 07:11 | NUR ---
PT RESTING IN BED AWAKE AT TIME OF SHIFT EXCHANGE. DENIES DISCOMFORTS OR NEEDS. PT WATCHING TV NEEDED ITEMS IN REACH.
--- NOTE | 2020-12-28 07:52 | NUR ---
PT UP TO THE TOILET SBA WITH FWW DOES WELL. PASSES SMALL AMOUNT OF LOOSE STOOL RETURNS TO BED REFUSES CHAIR. BREAKFAST SERVED.
--- NOTE | 2020-12-28 08:04 | NUR ---
PATIENT AWAKE IN BED. OFFERED A WARM WASHCLOTH AND UP IN THE CHAIR. PATIENT REFUSED CHAIR. WILL PLAN TO GET UP FOR LUNCH. NOTHING ELSE NEEDED. PATIENT EATING BREAKFAST
--- NOTE | 2020-12-28 09:47 | NUR ---
PT UP WORKING WITH P/T AMBULATING THE WANG USING A CANE
--- NOTE | 2020-12-28 09:51 | NUR ---
EXAMINED WOUND RIGHT BUTTOCK APPROX 1 CM ROUND SHEER AREA. CLEANSED AND COVERED WITH ALLEVYN. LEFT COHN ULCER APPROX 3X1.5 CM PARTIALLY COVERED WITH ESHCAR PARTIALLY BEEFY RED TISSUE. CLEANSED AND COVERED WITH ADAPTIC AND GAUZE, REED WRAPS RE-APPLIED.
--- NOTE | 2020-12-28 09:55 | NUR ---
Attempted to see Jakob, he is working with PT. General consenses is pt would benefit from a SNF. He is declining to go. Pt was discussed in IDT with Dr. Leonardo. Spoke PT and OT after they worked with patient today, per PT/OT pt will need to begin providing self care. Pt did not want to do so. I will again discuss SNF with him today.
--- NOTE | 2020-12-28 12:53 | NUR ---
PT CONTINUES SITTING UPRIGHT IN CHAIR HAS FRUIT AND A COOKIE FOR NOON MEAL. ENCOURAGED PT TO HAVE SOME NUTRITION ORDERED BOILED EGGS FOR HIM. PT REPOSITIONING FREQUENTLY.
--- NOTE | 2020-12-28 14:00 | NUR ---
Spoke with Jakob. He has worked with PT. Attempted to get an answer of where he plans to dc. He is all over the place with his topics. Attempted multiple times to redirect to find what his needs are. He would like to go home with his exwife, original states he can't go home and would go to SNF. Changed his mind and stating he can care for himself. He then discusses he can't shower, cooks very little, cannot get out to grocery shop. I asked if he would mind if I called his exwife. He asks that I do. He does ask we don't place him or make decisions without him. Informed I will not do so, he has to make all decision and I cannot force him to go to a SNF. Discussed my concern he may get hurt when he goes home as he needs a lot of assist. Discussed cg in home, assisted living, and SNF. Called and spoke with his exwife Jacob. She states he absolutly cannot go home alone. He can never go home to Jacob's house. She states he agreed to a SNF last night. UPdated I discussed SNF, SHELTER, and cg in the home. She has helped pt with eval from [facility] for senior care medicaid and he declined during the eval. She states she will come and speak with him at 6:30 tonight. They have discussed POA and she also will talk to him about this again and placement to a SNF. I will follow up tomorrow.
--- NOTE | 2020-12-28 15:02 | NUR ---
PT UP IN THE CHAIR MOST OF THE SHIFT REPOISTIONS INTO BED AT THIS TIME. SITTING UP WATCHING TV, MAKES NEEDS KNOWN. FRESH H20 PROVIDED
--- NOTE | 2020-12-28 17:18 | NUR ---
U/S COMPLETED ON LEFT ARM, NEGATIVE FOR DVT. PT SITTING UP IN BED WITH EVENING MEAL ANTICIPATES EX-WIFES VISIT
--- NOTE | 2020-12-28 18:30 | NUR ---
PT AMBULATED BACK TO BED WITH CANE AND SBA. PT IN BED. CALL LIGHT WITHIN REACH. NO FURTHER NEEDS AT THIS TIME.
--- NOTE | 2020-12-28 19:16 | NUR ---
REPORT RECEIVED FROM DAY SHIFT RN. PT LYING IN BED RESTING WITH EYES CLOSED. NOT DISTURBED AT THIS TIME. WHITE BOARD UPDATED. CALL LIGHT IN REACH.
--- NOTE | 2020-12-28 20:39 | NUR ---
EVENING ASSESSMENT COMPLETE. IVF INFUSING PER ORDER. PT DENIES PAIN OR NAUSEA. BLE REED WRAPS INTACT, LEGS ELEVATED ON PILLOW. EDEMA NOTED IN LEFT ARM/ELBOW. ARM ELEVATED. PT ANXIOUS ABOUT DISCHARGE PLANNING. ATTEMPTED TO REASSURE, PT REMAINS ANXIOUS. ASSISTED TO REPOSITION IN BED. DENIES FURTHER NEEDS. CALL LIGHT X 2 IN REACH.
--- NOTE | 2020-12-28 23:05 | NUR ---
PT RESTING IN BED WITH EYES CLOSED, NAD.
--- NOTE | 2020-12-29 02:31 | NUR ---
IN TO ROUND ON PT. PT AWAKE, EXPRESSES ANXIETY ABOUT DISCHARGE PLANNING. STATES "I DON'T WANT TO SIGN MY LIFE AWAY". ALSO REPORTS HE'S WORRIED ABOUT HAVING UNEXPECTED BM IN BED. THERAPEUTIC COMMUNICATION PROVIDED. ASSISTED PT TO REPOSITION IN BED. GLUTEN FREE SNACK AND FRESH WATER PROVIDED.
--- NOTE | 2020-12-29 03:27 | NUR ---
Ambulated pt around [facility] staff, up to bathroom. Pt resting at this time.
--- NOTE | 2020-12-29 03:27 | NUR ---
PT AMB THREE LAPS AROUND NURSES STATION WITH 1P SBA AND FWW. GAIT WEAK BUT STEADY. IN TO BR TO VOID AND HAVE SMALL LOOSE BM. BACK TO BED, JOANIE WELL.
--- NOTE | 2020-12-29 06:04 | NUR ---
VS AND I&O COMPLETE. LUE ELEVATED ON PILLOW. BLE ELEVATED. REED WRAPS IN PLACE. ASSISTED PT TO REPOSITION IN BED. PT DENIES FURTHER NEEDS AT THIS TIME. CALL LIGHT IN REACH.
--- NOTE | 2020-12-29 07:28 | NUR ---
REPORT RECIEVED FROM NIGHT MARGO VERONICA
--- NOTE | 2020-12-29 08:13 | NUR ---
MORNING ASSESSMENT DONE. PATIENT IS UP TO CHAIR AND EATING BREAKFAST, MORNING MEDICATIONS GIVEN. PATIENT DENIES PAIN OR NAUSEA. BILATERAL REED WRAPS INTACT, MINIMAL EDEMA IN BLE. NO OTHER NEEDS NOTED AT THIS TIME.
--- NOTE | 2020-12-29 09:15 | NUR ---
Received voice message from pt's exwife stating she spoke with him last night and it did not go well. He declines a SNF and also accused her of trying to take his money when she discussed him signing a POA. Called and spoke with Jacob and she states they have been divorces x 5 years and she has continued to assist him more than she shoulds. He is now dependent on her and she states she can no longer cont. to assist him. She again states he should not go home as he is unable to care for himself. Reminded I am unable to make him go to a SNF if he does not want to. I can only point out our concerns and offer placement. Jacob states understanding.
--- NOTE | 2020-12-29 09:28 | NUR ---
PATIENT SALINE LOCKED TO WORK WITH OCCUPATIONAL THERAPY.
--- NOTE | 2020-12-29 10:09 | NUR ---
PATIENT IS SITTING IN HIS CHAIR WATCHING TV. VITALS AND I&OS ARE DONE AND DOCUMENTED. LINEN CHANGED. FRESH WATER GIVEN. CALL LIGHT IN REACH. NO FURTHER NEEDS AT THIS TIME.
--- NOTE | 2020-12-29 11:21 | NUR ---
PATIENT AGITATED AND REQUESTING TO GO HOME AT 2PM TODAY. DR. HIGH IN TO SEE PATIENT.
--- NOTE | 2020-12-29 11:30 | NUR ---
In to speak with pt as per [address] Leonardo, pt will be discharged today. Friend Jannie is in his room and states she assists him when needed. Spoke with Jakob and updated PT, OT, and nursing staff all recommend he go to a SNF on discharge. He is angry and states he has cared for himself 70 years. His friend Jannie attempts to discuss with him he is weak and not able to care for self and he should go for rehab. Pt declines and states he has choices. I agreed with him and let him know he can discharge to home, but I have to make him aware of our concerns. Pt then states he will leave today and go home and Jannie will take him home. Jannie is more than likely, less than a 100 pounds. I asked her if she thinks she can get him in and out of her car. She again attempts to persuade him to go for rehab. She states she will assist him to get home. Pt plans on dc today to home.
--- NOTE | 2020-12-29 12:04 | NUR ---
RIGHT ARM IV REMOVED WITH CATHETER INTACT. PATIENT IS DRESSED, UP TO BATHROOM INDEPENDANTLY WITH CANE TO VOID.
[2020-12-29] MEDS ORDERED: XARELTO15 MG PO (12:07)
[2020-12-29] MEDS ORDERED: XARELTO20 MG PO (12:08)
--- NOTE | 2020-12-29 16:00 | NUR ---
Referral sent to Jannie Fierro requesting phone calls to check on this patient. Pt states he has friends who will help him.
[2020-12-30] MEDS ORDERED: ELIQUIS5 MG PO (03:45)
== END 2020-12-29 13:05 | disposition home or self-care (01) | DRG 683 ==
LOC: ED 07:46 → MS 11:03
PROVIDERS: ADMIT Student in an Organized Health Care Education/Training Program; ATTEND Student in an Organized Health Care Education/Training Program
DX: N17.9 Acute kidney failure, unspecified (principal); I48.21 Permanent atrial fibrillation; I82.812 Embolism and thrombosis of superficial veins of left lower extremity; Z20.822 Contact with and (suspected) exposure to COVID-19; I10 Essential (primary) hypertension; E11.9 Type 2 diabetes mellitus without complications; E78.5 Hyperlipidemia, unspecified; E87.6 Hypokalemia; R94.31 Abnormal electrocardiogram [ECG] [EKG]; R00.1 Bradycardia, unspecified; Z79.899 Other long term (current) drug therapy; Z79.01 Long term (current) use of anticoagulants; Z79.84 Long term (current) use of oral hypoglycemic drugs; Z91.81 History of falling; Z86.73 Personal history of transient ischemic attack (TIA), and cerebral infarction without residual deficits
CPT/HCPCS: 36415; 51702; 71045; 80048; 80053; 81001; 83036; 83735; 83880; 84132; 85025; 93005; 93010; 93971; 97110; 97116; 97162; 97165; 97530; 99285-25; C9803; J1650; J3475; J3480; J7060; J7121; U0003

== ENCOUNTER 2020-12-30 03:22 | Emergency (ER) | payer MEDICARE, MEDICAID ==
[~2020-12-30] VITALS: Ht 185.4 cm; Wt 74.8 kg
[~2020-12-30 03:22] MED LIST changes: +K-TAB10 MEQ PO; +XARELTO15 MG PO; +XARELTO20 MG PO
[2020-12-30] MEDS ORDERED: ELIQUIS5 MG PO (03:45)
--- NOTE | 2020-12-31 17:13 | EKG ---
[facility] [address] [facility] [place] [address] Signed Atrial fibrillation with slow ventricular response with premature ventricular or aberrantly conducted complexes Nonspecific ST and T wave abnormality Abnormal ECG When compared with ECG of 25-DEC-2020 04:48, Nonspecific T wave abnormality no longer evident in Anterior leads Confirmed by SIENA HIGH MD ([id number]) on 12/31/2020 5:13:11 PM Electronically Signed By: SIENA HIGH MD 12/31/20 1713 PATIENT NAME: HENNY SAUCEDA SEVERO Electrocardiogram DATE OF : 45 PHYSICIAN: SIENA HIGH MD REPORT #: [id number] REPORT IS CONFIDENTIAL AND NOT TO BE RELEASED WITHOUT AUTHORIZATION
== END 2020-12-30 05:20 | disposition home or self-care (01) ==
LOC: ED 03:22
DX: R53.1 Weakness (principal); I10 Essential (primary) hypertension; Z86.73 Personal history of transient ischemic attack (TIA), and cerebral infarction without residual deficits; Z87.891 Personal history of nicotine dependence; Z91.018 Allergy to other foods; Z88.8 Allergy status to other drugs, medicaments and biological substances; Z79.899 Other long term (current) drug therapy
CPT/HCPCS: 93005; 93010; 99285-25

== ENCOUNTER 2021-01-03 09:45 | Inpatient (IN) | payer MEDICARE, MEDICAID ==
[~2021-01-03] VITALS: Ht 185.4 cm; Wt 75.1 kg
--- NOTE | 2021-01-03 14:30 | NUR ---
PT ARRIVED VIA STRETCHER WITH HUMAN RESOURCES SUPPORT SPECIALIST. PT AWAKE, PENA IN PLACE, BELONGINGS IN BAGS WITH PT. PT ASSISTED OVER TO THE BED. PT REPORTS NO PAIN AT THIS TIME. PT IS DROWSY/SLEEPY BUT ORIENTED X 3 AND ANSWERING QUESTIONS. PT IS FORGETFUL AT TIMES HOWEVER AND REPEATS HIMSELFT AND CAN HAVE DELAYED RESPONSES. ORDERED MEDICATION ADMINISTERED AFTER PT ARRIVED, PT ADMITTED, AND PT ASSESSED. SKIN TEARS PRESENT ON RIGHT FOREARM, RIGHT HAND, AND LEFT FOREARM ALLONG WITH BRUISING. REED WRAPS REMOVED AND ALLEVYNS PLACED OVER SKIN TEARS. LEGS ARE EDEMATOUS AND WEEPING WITH REDNESS PRESENT AND WARM. LEGS ARE ALSO DRY/PEELING IN PLACES WITH A DRY/CRUSTY SCAB ON LEFT COHN. PT PEDAL PULSES WEAK, RADIAL PULSES STRONG. PT DENIES ANY NUMBNESS OR TINGLING WHEN ASKED AND FOLLOWS COMMANDS. AFTER ASSESSMENT PT REPORTS NO FURTHER NEEDS AND IS NOW LAYING IN BED WATCHING TV. SEIZURE PADS ON BED, PT SALINE LOCKED, CALL LIGHT IN REACH, BED IN LOWEST POSITION.
--- NOTE | 2021-01-03 14:41 | NUR ---
PT ADMITTED TO CCU FROM UNIT. GAVE GLENYS TAET CONTACT INFO FOR PT, SHE PLACED IN PT'S CHART. WILL FOLLOW.
[2021-01-03] MEDS ORDERED: ELIQUIS5 MG PO (14:43)
--- NOTE | 2021-01-03 14:44 | NUR ---
MED REC COMPLETE
--- NOTE | 2021-01-03 15:40 | NUR ---
THIS RN IN TO CHECK ON PT. PT LAYING IN BED AWAKE AND ALERT WATCHING TV. PT REPOSITIONED IN BED WITH THE HELP OF A BUTCHER MEAT. PT LEGS ELEVATED ON PILLOWS WELL. PT GIVEN A DRINK OF WATER PER HIS REQUEST. PT REPORTS NO PAIN WHEN ASKED AND REPORTS NO FURTHER NEEDS AT THIS TIME. WILL CONTINUE PLAN OF CARE. CALL LIGHT IN REACH, BED IN LOWEST POSITION.
--- NOTE | 2021-01-03 17:36 | NUR ---
THIS RN IN TO ASSESS PT AND ADMINISTER ORDERED MEDICATION. PT LAYING IN BED AWAKE AND ALERT WATCHING TV. NO INSULIN ADMINISTERED AT THIS TIME DUE TO A BLOOD GLUCOSE OF 93. XARELTO ADMINISTERED ORDERED. PT PROVIDED WITH DINNER AT THIS TIME AND IS NOW EATING. PT REPORTS NO FURTHER NEEDS AT THIS TIME, WILL CONTINU PLAN OF CARE. CALL LIGHT IN REACH, BED IN LOWEST POSITION, PT SALINE LOCKED, PENA DRAINING.
--- NOTE | 2021-01-03 18:34 | NUR ---
THIS RN IN TO CHECK ON PT. PT ALERT AND AWAKE LAYING IN BED. PT STATED HE WAS FINISHED WITH HIS DINNER WHICH WAS TAKEN AWAY. PT STATED HE NEEDED TO VOID AT THIS TIME AND WAS REMINDED HE HAD A PENA. PT ALSO STATED HE HAD BACK PAIN. PRN TYLENOL ADMINISTERED AT THIS TIME FOR PAIN. PT WAS ALSO REPOSITIONED UP IN BED, BACK ASSESSED HE STATED HE FELT SOMETHING THERE. NOTHING WAS PRESENT UNDERNEATH THE PT'S BACK. SHEETS WERE FIXED UNDERNEATH OF WRINKLES. PT REPORTS NO FURTHER NEEDS AT THIS TIME WHEN ASKED, WILL CONTINUE PLAN OF CARE. CALL LIGHT IN BED WITHIN REACH, BED IN LOWEST POSITION, SEIZURE PADS UP, PENA DRAINING.
--- NOTE | 2021-01-03 19:30 | NUR ---
REPORT RECEIVED FROM PANDA VERONICA. PT IN BED, SEIZURE PADS IN PLACE. AWAKE AND REQUESTING REPOSITIONING OF HIS NECK AND BACK FREQUENTLY.
--- NOTE | 2021-01-03 20:00 | NUR ---
IN TO DO ASSESSMENT. NEURO CHECK DONE, PUPILS PINPOINT AND VERY SLOW TO REACT. PT HAS SLIGHT LEFT SIDED DROOP OF FACE. PT UNABLE TO FOLLOW ALL COMMANDS FOR ACCURATE EXAM, BUT LEFT SIDE DOES APPEAR TO REACT SLOWER AND WEAKER THAN THE LEFT, PT FAVORING THE RIGHT SIDE. PT VERY FORGETFUL, CONTINUALLY ASKING TO URINATE DESPITE REMINDING HIM HE HAS A PENA IN PLACE. NOT ABLE TO REMEMBER HE IS IN [facility] DESPITE FREQUENT REMINDERS. ORIENTED TO SELF ONLY. BILAT LE HAVE 3+ EDEMA WITH OPEN SORES, ELEVATED ON PILLOWS. PULSES PALPABLE BILAT. SEIZURE PADS IN PLACE.
--- NOTE | 2021-01-03 20:15 | NUR ---
CALL TO DR JIMENES TO DISCUSS NEURO ASSESSMENT FINDINGS, ORDER GIVEN FOR HEAD CT AND CODE STROKE CALLED. BLOOD SUGAR CHECKED WAS 74. PT TAKEN DOWN TO CT WITH RN THEN BACK TO ROOM.
--- NOTE | 2021-01-03 22:00 | NUR ---
PT RESTLESS, CONSTANTLY ASKING ABOUT CORDS AND PENA.
--- NOTE | 2021-01-03 22:37 | EKG ---
[facility] [address] [facility] [address] [place] [address] Signed Atrial fibrillation with abberant conduction at times Low voltage QRS Nonspecific ST and T wave abnormality Abnormal ECG When compared with ECG of 30-DEC-2020 03:29, ST now depressed in Anterior leads Nonspecific T wave abnormality, worse in Inferior leads T wave inversion now evident in Anterior leads Confirmed by KENNETH JIMENES MD ([id number]) on 01/03/2021 10:37:23 PM Electronically Signed By: KENNETH JIMENES MD 01/03/21 2237 PATIENT NAME: HENNY SAUCEDA Electrocardiogram DATE OF : 45 PHYSICIAN: KENNETH JIMENES MD REPORT #: [id number] REPORT IS CONFIDENTIAL AND NOT TO BE RELEASED WITHOUT AUTHORIZATION
--- NOTE | 2021-01-04 00:39 | NUR ---
PT AWAKE IN BED, CONTINUES TO BE RESTLESS, CALLING OUT FOR HELP WITH POSITIONING AND FIXATING ON NEEDING TO URINATE.
--- NOTE | 2021-01-04 02:00 | NUR ---
PT HAS BEEN SLEEPING OFF AND ON, EASILY AROUSES. REMAINS CONFUSED TO ALL BUT SELF.
--- NOTE | 2021-01-04 04:30 | NUR ---
PT AWAKE IN BED, CONT TO FIXATE ON CATHETER AND MONITOR CORDS.
--- NOTE | 2021-01-04 05:03 | NUR ---
PT RESTING IN BED WITH EYES CLOSED. HR 40'S AFIB.
--- NOTE | 2021-01-04 08:10 | NUR ---
In and spoke with Jakob. We discussed his difficulties at home and return to the ER x 2. Asked if he would like assist to go to a rehab to become stronger prior to returning home. Pt again stating he does not need rehab or an assisted living and plans on discharge to home when he is cleared to go home. Discussed with pt his friend, Jannie, called me and let me know he could not get off the toilet without assist. Pt states this isn't true he can care for self and he will call friends if needed. I will update Dr. Osullivan in 829 meeting pt is declining SNF and assisted living.
--- NOTE | 2021-01-04 09:33 | NUR ---
PATIENT SITTING UP IN BED AT THIS TIME AND EATING HIS BREAKFAST. PT IS ABLE TO FEED HIMSELF AT THIS TIME AND TOLERATING WELL. PT REPEATING HIMSELF MANY TIMES OVER AND OVER WITH THE SAME STORY ABOUT HIS AFIB AND HIS BLOOD THINNERS. DR. JIMENES IN ROOM TO SEE PATIENT AND DISCUSSING PLAN OF CARE. PT IS SOMEWHAT AGREEABLE THAT HE WILL POTENTIALLY ACCEPT GOING TO AN ASSITED LIVING FACILITY AT SOME POINT. PT VERY FRUSTRATED WITH HOW MANY LAB DRAWS AND POKES HE HAS HAD. CBG 59 AT THIS MORNING AND PT DRINKING APPLE JUICE. PT REMAINS IN AFIB WITH HR RANGING FROM UPPER 40s TO 70s. PENA DRAINING YELLOW URINE. WILL CONTINUE TO MONITOR.
--- NOTE | 2021-01-04 10:47 | NUR ---
ALIS FROM PT REMAINS IN ROOM TALKING AND WORKING WITH PATIENT. PATIENTS FRIEND MAXWELL IN ROOM AT THIS TIME.
--- NOTE | 2021-01-04 11:22 | NUR ---
PATIENT UP BY SELF WITH ASSIST OF WALKER, THIS RN INTO ROOM. PATIENT STANDING STATING "I THINK I WANT TO CALL MY FRIENDS AND GO HOME." PATIENT STATES HE FEELS HE WILL BE OKAY AT HOME LONG HIS FRIENDS CAN HELP HIM UP THE STAIRS. MARCIO FROM OT INTO ROOM TO WORK WITH PATIENT. PATIENT REMAINS SEATED ON THE BED, MARCIO AT BEDSIDE.
--- NOTE | 2021-01-04 11:44 | NUR ---
PHYS THERAPY AND OT HAVE B OTH BEEN IN ROOM TO WORK WITH PATIENT. PATIENT ADAMENT THAT HE IS GOING HOME. PT'S EX CHEMO IN ROOM BUT HAS NOT LEFT. SHE IS ALSO PERSITANT THAT THE PATIENT STRONG ENOUGH OR WELL ENOUGH TO BE LIVING INDEPENDENTLY. PT VERY PARANOID ABOUT BEING EVICTED FROM HIS APARTMENT. PT ABLE TO AMBULATE WITH PT IN HALLWAY, BUT NOT AT FULL STRENGTH OR CAPACITY. DR. JIMENES BACK IN ROOM BRIEFLY WITH PATIENT. ORDERS TO BE REVIEWED SOON AVAILABLE.
--- NOTE | 2021-01-04 12:30 | NUR ---
IN PATIENT'S ROOM FOR ASSESSMENT AND VITALS. PT REMAINS SITTING IN CHAIR AND VERY ANXIOUS. PT STILL WANTING TO HAVE HIS PERSONAL BELONGINGS FROM THE CLOSET ON THE BED. PT MANY TIMES PLACES CALL LIGHT ON AND STARTS TO RAMBLE ABOUT PAST TIMES THAT HE HAS COME TO "THIS PLACE" MEANING THE HOSPITAL, AND STARTS TO TALK ABOUT CALLING THE FIRE DEPARTMENT AND HAVING HIMSELF BROUGHT TO THE HOSPITAL. MANY TIMES PATIENT IS REMINDED OF EVENTS OF YESTERDAY WITH HIS SEIZURE, BUT PATIENT DENIES EVERY HAVING A SEIZURE. PT STARTS TO TALK ABOUT HOW HE WAS GOING TO GET A SECOND COVID VACCINE, BUT THE FIRST VACCINE HE FEELS WAS GIVEN TOO CLOSE TO HIS BONE, IT MADE HIS RIGHT ARM BONE HURT AND THIS PAIN EXTENDED INTO HIS NECK AND HIS BACK. PT DID NOT RECEIVE HIS SECOND VACCINE YESTERDAY HE BECAME UNRESPONSIVE IN HIS CAR PRIOR TO GOING TO [employer]. PATIENT STILL ADAMENTLY SAYING, "I JUST NEED MY SHOES, AND THEN I'M GOING TO GO. I JUST NEED TO GET HOME. I CAN'T LOSE MY PLACE."
--- NOTE | 2021-01-04 12:50 | NUR ---
PATIENT HELPED BACK TO BED AND IS NOW RESTING IN BED. PT REMAINS IN AFIB. WILL CONTINUE TO MONITOR.
--- NOTE | 2021-01-04 14:07 | NUR ---
IN TO PATIENT ROOM, PATIENT SLEEPING IN BED. RESPIRATORY RATE EVEN AND UNLABORED. MONITOR IN PLACE. ALL SIDE RAILS IN PLACE FOR SAFETY. CALL LIGHT WITH IN PATIENT REACH. THIS RN REMAINS IN DIRECT LINE OF SIGHT TO PATIENT AT THIS TIME.
--- NOTE | 2021-01-04 14:10 | NUR ---
Notified by Dr. Osullivan she is concerned pt is becoming more confused and may be going into DTs pt will be made an IP and started on medication. I will reassess pt this afternoon.
--- NOTE | 2021-01-04 14:59 | NUR ---
PT RESTING AT THIS MOMENT, CCU STAFF REQUESTED I NOT DISTURB PT AT THIS TIME. WILL CONTINUE TO FOLLOW
--- NOTE | 2021-01-04 15:15 | NUR ---
Returned to see pt and he is sleeping. Spoke with Rn and she states concern as pt is more confused and is having rambling conversations staing he will call the fire department to bring him to the hospital. Spoke with PT and pt was not able to follow directions for PT today, but he was able to ambulate with a walker. I will contact APS and request they evaluate him.
--- NOTE | 2021-01-04 15:20 | NUR ---
PATIENT NOTED TO BE ATTEMPTING TO GET OUT OF BED BY HIMSELF. INTO ROOM TO HELP PATIENT. PATIENT ABLE TO GET UP WITH ASSISTANCE, AMBULATE INTO BATHROOM, ATTEMPT TO VOID STANDING, BUT UNABLE TO. PT NOW SITTING IN CHAIR. PT STATES THE BED IS THE WORST BED HE HAS EVER SLEPT IN AND IT FEELS LIKE SAND PAPER ON HIS LEGS AND HE CAN'T MOVE WELL IN THIS BED. PATIENT NOW SITTING IN CHAIR AND LUNCH OFFERED TO PATIENT TO WHICH HE AGREED TO TRY AND EAT SOMETHING. PATIENT RAMBLING ABOUT SOMET THINGS THAT DON'T MAKE SENSE, BUT ALSO MAKING SOME SENSE. PT TALKING ABOUT GETTING HIS CLOTHES ON. PT REMINDED THAT HIS PANTS IN THE CLOSET ARE COVERED IN URINE AND FECES AND QUITE DIRTY. CONTINUE TO MONITOR.
--- NOTE | 2021-01-04 15:35 | NUR ---
Called and spoke with Deisy Oscar from APS. UPdated on pt's previous admission and comments made by his ex Girish Kiser. Updated pt insisted on going home last admission, but returned within a few hours as he had 2 falls and also could not get off the toilet. Pt called and ambulance. Pt is again stating he will leave and we are concerned as he is unsafe. Pt then was in a friends car and became unresponsive and returned to the ER again yesterday. It is unclear if pt had a seizure and he admitted to OB for this. I requested they visit and evaluate him. Deisy asked if he could clear state his wants and I let her know last discharge and this am when I spoke with him, he clearly stated he wanted to go home. He refused placement to a snf or to an assisted living. Deisy stated, "it is the pts right to choose to go home even if he cannot care for himself". She will staff if with other APS workers, but pt can leave if he desires.
--- NOTE | 2021-01-04 15:44 | NUR ---
PATIENT NOW OBSESSING OVER HIS PERSONAL PICTURES IN HIS HOME, HIS METAL BOX THAT HAS HIS CERTIFICATE, HIS OLD RECORDS HE HAS AT HOME. WHEN ASKING THE PATIENT WHY HE IS WORRIED ABOUT THIS, HE STATES THAT HE IS WORRIED HIS LANDLORD WOULD COME INTO HIS HOME AND THROW AWAY HIS STUFF. ATTEMPTED TO REASSURE PATIENT THAT THIS WOULD BE UNLIKELY FOR THIS TO HAPPEN, THAT SOMEONE WOULD ENTER HIS HOUSE AND DO THIS. PATIENT STATES, "WELL I WOULD BE WILLING TO BET THAT MY STUFF ISN'T SAFE, AND IF I DON'T GET OUT OF HERE SOON..." WILL CONTINUE TO MONITOR.
--- NOTE | 2021-01-04 17:56 | NUR ---
PATIENT ATTEMPTING TO GET HIS SHOES ON SO HE CAN LEAVE AMA. PATIENT ABLE TO GET A HOLD OF A FRIEND NAMED DEB BUT PATIENT STATES THIS PERSON WASN'T ABLE TO COME GET PATIENT. DISCUSSED WITH PATIENT HIM LEAVING AMA MORE, AND ATTEMPTS TO REASON WITH HIM HAVE SO FAR BEEN UNSUCCESSFUL. PT ASKING FOR A "DRYER" TO PUT HIS CLOTHES IN THAT ARE COVERED IN DRIED URINE AND FECES. PATIENT STILL NOT SURE HOW HE WOULD GET HOME IF HE WERE TO LEAVE RIGHT NOW AMA. PATIENT THEN STATES, "I COULD SURE HAVE A BEER RIGHT NOW." DISCUSSED THIS MORE WITH PATIENT. PATIENT STATES HE WOULD BE AGREEABLE TO STAY THE NIGHT AND MAYBE GO HOME IN THE MORNING INSTEAD IF HE COULD HAVE A BEER. CALLED DR. JIMENES AND UPDATED HER. ORDER REC'D TO ALLOW PATIENT TO HAVE 1 BEER Q4HRS PRN. PATIENT UPDATED ON THIS AND HE IS STILL ATTEMPTING TO PUT HIS SHOES ON BECAUSE HE WANTS TO.
--- NOTE | 2021-01-04 18:13 | NUR ---
PATIENT UP WALKING IN WANG AT THIS TIME WITH RN. PT DEMANDING TO WEAR HIS COAT AND HELPED HIM GET THIS ON. WAITING ON PATIENT'S DINNER AND BEER TO ARRIVE.
--- NOTE | 2021-01-04 18:30 | NUR ---
AMBULATED HALLS W/ PT SEVERAL TIMES, 1 PA W/ FWW
--- NOTE | 2021-01-04 18:50 | NUR ---
PATIENT SITTING IN CHAIR AND PICKING AT THIS DINNER. PT ALSO HAS HIS BEER BUT HASN'T DRANK MUCH OF IT.
--- NOTE | 2021-01-04 19:30 | NUR ---
RECEIVED REPORT FROM [facility]. pt RESTING IN CHAIR WITH CALL LIGHT WITHIN REACH.
--- NOTE | 2021-01-04 20:30 | NUR ---
pt WANDERING AROUND ROOM, REFUSING TO WEAR CARDIAC LEADS AT THIS TIME. STEADY ON FEET. LEFT SITTING IN CHAIR. CALL LIGHT WITHIN REACH.
--- NOTE | 2021-01-04 21:46 | NUR ---
pt SITTING IN CHAIR. STATED "I STILL GOT SOME BEER, I SHOULD HAVE BEEN DONE WITH IT BY NOW." CONSTANTLY TALKING, SWITCHING TOPICS QUICKLY. REFUSED TO TAKE SHOES AND SOCKS OFF FOR ASSESSMENT. REFUSED INSULIN AT THIS TIME, EDUCATION DONE. pt REQUIRED A LOT OF ENCOURAGEMENT TO TAKE KEPPRA AND ELIQUIS, DID FINALLY TAKE. ASSESSMENT DONE. pt UNABLE TO STATE WHY HE IS HERE. RANDOMLY WOULD GET UP TO DO SOMETHING. PULLED EVERY THING OUT OF THE CLOSET. THEN HUNG HIS COAT UP LATER. VOIDED A SMALL AMOUNT. STEADY ON FEET WITH FWW. ASSISTED TO GET IN BED. FRESH LINENS. CALL LIGHT WITHIN REACH. NO FURTHER REQUESTS AT THIS TIME. CALL LIGHT WITHIN REACH.
--- NOTE | 2021-01-04 22:23 | NUR ---
CALL LIGHT ON. pt REQUESTED THE TEMPERATURE BE TURNED UP AND THE CLOSET DOORS BE OPENED. NO FURTHER REQUESTS AT THIS TIME. CALL LIGHT WITHIN REACH.
--- NOTE | 2021-01-04 23:12 | NUR ---
CALL FROM [facility] MAXWELL UPDATED ON pt.
--- NOTE | 2021-01-05 00:09 | NUR ---
ROUNDED ON pt. RESTING IN BED WITH EYES CLOSED, RESPIRATIONS REGULAR AND UNLABORED. CALL LIGHT WITHIN REACH. CURTAIN OPEN TO NURSES STATION.
--- NOTE | 2021-01-05 01:37 | NUR ---
pt ATTEMPTING TO GET OUT OF BED. THIS RN IN TO ASSIST. pt UP TO VOID, NO OUTPUT. WANDERED AROUND ROOM. pt SETTLED IN CHAIR. ATTEMPTED TO BLADDER SCAN. pt BACK UP TO VOID. UNABLE TO. pt BACK TO CHAIR. BLADDER SCAN FOR 140. pt STATED "IF YOU TRY TO PUT THAT TUBE IN THEN I'M LEAVING." DISCUSSED IMPORTANCE OF DRINKING FLUIDS. BROUGHT THE pt FLUIDS. pt SITTING IN CHAIR. CALL LIGHT RADHA ELIZALDE.
--- NOTE | 2021-01-05 02:21 | NUR ---
pt HAS PUT HIS SHOES ON AND IS NOW SITTING IN THE CHAIR WITH LEGS ELEVATED. EYES CLOSED, RESPIRATIONS REGULAR AND UNLABORED.
--- NOTE | 2021-01-05 04:21 | NUR ---
pt VISUALIZED FROM NURSES STATION. SITTING IN CHAIR WITH EYES CLOSED, RESPIRATIONS REGULAR AND UNLABORED. CALL LIGHT WITHIN REACH.
--- NOTE | 2021-01-05 05:46 | NUR ---
LAB INTO DRAW, GLENYS FERNANDEZ ASSISTED. pt REFUSING TO HAVE LABS DRAWN. pt EDUCATION DONE. pt DRESSED SELF, SITTING IN THE CHAIR ON HIS PHONE. CALL LIGHT WITHIN REACH.
--- NOTE | 2021-01-05 07:30 | NUR ---
REPORT RECIEVED, PATIENT IS SITTING UP IN CHAIR.
--- NOTE | 2021-01-05 08:00 | NUR ---
ASSESSMENT DONE. PATIENT IS VERY TALKATIVE. PATIENT REQUESTING BREAKFAST. PATIENT IS FULLY DRESSED SITTING IN CHAIR. ACCUCHECK DONE, NO INSULIN REQUIRED.
--- NOTE | 2021-01-05 08:40 | NUR ---
ROUTINE MEDICATIONS GIVEN INCLUDING ZYPREXA 2.5 MG IV.
--- NOTE | 2021-01-05 09:45 | NUR ---
DR. JIMENES HERE TO SEE PATIENT, PATIENT IS HAVING DIFFICULTY FOLLOWING POC PATIENT DID RECIEVE ZYPREXA EARLIER. PATIENT WISHES TO REMAIN IN CHAIR EVEN THOUGH HE IS VERY TIRED.
--- NOTE | 2021-01-05 11:00 | NUR ---
PHYS THERAPY HERE TO WORK WITH PATIENT. PATIENT IS WALKING WITH PHYS THERAPY USING WALKER.
--- NOTE | 2021-01-05 13:30 | NUR ---
HAS NOT VOIDED THUS FAR THIS SHIFT.
--- NOTE | 2021-01-05 14:39 | NUR ---
SLEEPING IN CHAIR. NO DISTRESS NOTED.
--- NOTE | 2021-01-05 15:45 | NUR ---
transfer orders to MED-SURG RECIEVED. PATIENT HAS BEEN SITTING IN CHAIR ALL DAY. HAS BEEN COOPERATIVE. HAS NOT VOIDED THIS SHIFT. IS AWARE THAT PATIENT HAS NOT VOIDED THIS SHIFT. NO FUTHER ORDERS AT THIS TIME.
--- NOTE | 2021-01-05 16:14 | NUR ---
Update from Rn, pt will transfer to the floor and possible dc to home tomorrow.
--- NOTE | 2021-01-05 18:16 | NUR ---
PT TO FLOOR WALKING WITH GLENYS HINDS. PT ANXIOUS AND LOOKING AROUND ROOM FOR THINGS TO FIDDLE WITH. MULTIPLE COMPLAINTS ABOUT ROOM, BUT REASSURED THAT WE WILL TAKE GOOD CARE OF HIM AND OFFERED SEVERAL THINGS INCLUDING WARM BLANKETS AND COOKIE. PT NEEDING LOTS OF REASSURANCE. REFUSED VS.
--- NOTE | 2021-01-05 18:20 | NUR ---
AMBULATED TO MED-SURG, REPORT GIVEN EARLIER. TOLERATED AMBULATION WELL.
--- NOTE | 2021-01-05 20:56 | NUR ---
ASSESSMENT COMPLETED. GCS 15, A&O TO PERSON, AND PLACE. LUNGS CLEAR IN UPPER LOBES, DIMINISHED IN LOWER LOBES. HEART TONES IRREGULAR. SCHEDULED MEDS PROVIDED WITH EDUCATION. ABD SOFT, NONTENDER, BOWEL TONES ACTIVE, PT STATES NORMAL. PT IS DROOLING ALOT. PT ATE 80% OF DINNER. PT DECLINES TO GET INTO GOWN. SKIN IS WARM AND VERY MOIST. BLE AND BUE EDEMA 4+. 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 CIRCULATION AND SENSATION INTACT. CMS INTACT IN ALL OTHER EXTREMITIES. PT DECLINES TO GET OUT OF CHAIR AT THIS TIME. NO OTHER NEEDS AT THIS TIME. CALL LIGHT IN REACH.
--- NOTE | 2021-01-05 21:56 | NUR ---
@2100 PT CALLED, WANTED TO USE BATHROOM AND HANG UP HIS COAT. SBA, HE SAYS HE WON'T FALL AND IF HE DOES IT ISN'T "YOUR FAULT". VOIDED, UNMEASURED. GOWN, AND PJ PANTS ON. NOTED HIS LEGS ARE SWOLLEN AND WEEPING. INCONT PAD PLACED ON THE BED. REQUIRED ASSISTANCE IN LIFTING HIS LEGS THEY ARE TOO HEAVY. ONCE IN BED ALL PERSONAL ITEMS WITHIN HIS REACH. ENCOURAGED A SHOWER TOMORROW. HIS CLOTHING ARE DIRTY, STAINED WITH FOOD. SWEAT PANTS TOO BIG, AND FALL DOWN WHEN WALKING. NOTABLE BODY ODOR. THIS PT KNOWN TO THIS FIELD MAP TECHNICIAN. HE WAS ABLE TO RECALL EVENTS IN THE PAST THAT ARE RELATED TO THIS FIELD MAP TECHNICIAN. FAIRLY ACCURATE EVENTS. ONCE IN BED, ALARM PLACED. CURRENTLY AT THIS TIME (2200) PT IS WITH EYES CLOSED, RESP EVEN AND UNLABORED. LIGHTS ON PER HIS CHOICE.
--- NOTE | 2021-01-05 23:51 | NUR ---
PT RESTING IN BED, EYES CLOSED. RR EVEN, UNLABORED. CALL LIGHT IN REACH. BED ALARM ON.
--- NOTE | 2021-01-06 02:45 | NUR ---
ASSESSMENT COMPLETED. GCS 15, PT ORIENTED TO PERSON, PLACE. LUNGS CLEAR IN UPPER LOBES AND DIMINISHED IN LOWER LOBES. HEART TONES IRREGULAR. LEFT HAND 3+ EDEMA, DECREASED MOTION, PULSE INTACT. RIGHT HAND CMS INTACT. BLE 4+ EDEMA, CMS INTACT. ABD SOFT, NONTENDER, BOWEL TONES ACTIVE, PT STATES NORMAL. IV WNL. ICE WATER PROVIDED. NO OTHER NEEDS AT THIS TIME. CALL LIGHT IN REACH, BED ALARM ON, RAILS UP.
--- NOTE | 2021-01-06 04:45 | NUR ---
PT RESTING IN BED, EYES CLOSED. RR EVEN, UNLABORED. CALL LIGHT IN REACH, BED ALARM ON.
--- NOTE | 2021-01-06 06:34 | NUR ---
VS AND I&O COMPLETED. PT SBA FWW TO BR AND BACK TO CHAIR. ENSURE PROVIDED. NO OTHER NEEDS. CALL LIGHT IN REACH.
--- NOTE | 2021-01-06 08:00 | NUR ---
REPORT RECEIVED FROM NIGHT RN AND PT. CARE RESUMED. PT. IS UP IN THE CHAIR AND EATING. HE IS DROOLING AT TIMES AND DOES NOT SEEM AWARE OF IT. ALERT AND ORIENTED TO SELF AND PLACE. HE DENIES PAIN. +3 EDEMA BLE. LEGS ARE SCALING AND ELSI. WHEN RT. LEG SOCK WAS REMOVED THERE WERE LARGE OPEN AREAS WHERE SKIN WAS MISSING AND THAT WERE DRAINING SEROUS FLUID. ELEVATED LEGS. LEFT ARM HAS +2 PITTING EDEMA. IV SITE WNL AND FLUSHES. LUNGS DIM. IN BASES. PT. DENIES WANTING A BEER AND STATED HE DID NOT FINISH BEER LAST NIGHT. PT. LEFT RESTING WITH CALL LIGHT IN REACH AND CURTAIN OPEN.
--- NOTE | 2021-01-06 08:00 | NUR ---
Patient sitting in the chair. Warm washcloth offered and given for face. blood surgar done, breakfast is ordered. call light with in reach. no further needs at this time.
--- NOTE | 2021-01-06 14:19 | NUR ---
PT. ALERT AND ORIENTED TO ALL BUT DATE. HE IS EATING AND DRINKING ENSURE WELL. DUE TO VOID. LUNGS DIM. IN BASES. IV SITE WNL. PT. DENIES PAIN. BED BATH BY NURSES AND GOWN CHANGED. SOCKS CHANGED. FEET ARE COLD AND PALE AND BLE EDEMA UNCHANGED. NEW CHAIR BROUGHT IN AND LEGS ELEVATED. PT.
--- NOTE | 2021-01-06 16:15 | NUR ---
NO CHANGE IN PLAN FOR DISCHARGE. FRIENDS CONT. TO WANT PT TO GO TO A SF, PT CONT. TO DECLINE SNF OR [facility] AT MY VISITS AND PLANS ON DC TO HOME.
--- NOTE | 2021-01-06 16:59 | NUR ---
PATIENT WAS BLADDER SCANNED AND 303ML IN BLADDER. PT. THREATENED THAT HE WILL LEAVE IF HE NEEDS A CATHETER. WILL CONTINUE TO MONITOR.
--- NOTE | 2021-01-06 17:13 | NUR ---
MD NOTIFIED ABOUT LOW URINE OUTPUT AND BLADDER SCAN. NO NEW ORDERS
--- NOTE | 2021-01-06 18:05 | NUR ---
PT. IS HERE FOR POSSIBLE SEIZURES AND ALTERED MENTAL STATUS. HE IS SBA WITH FWW. HIS SKIN IS VERY FRAGILE WITH MULTIPLE SKIN TEARS AND OPEN SPOTS OF SKIN LOSS ON RLE. COCYX RED AND BLANCHABLE. +3 EDEMA BLE. URINE OUTPUT HAS BEEN 200ML THIS SHIFT AND BLADDER SCAN AT 1645 WAS 303ML. MD NOTIFIED. PT. IS ANXIOUS, ALERT AND ORIENTED.
--- NOTE | 2021-01-06 19:20 | NUR ---
SHIFT REPORT RECEIVED FROM BAIRON VERONICA. PT RESTING IN CHAIR, WATCHING TV. NO OTHER NEEDS AT THIS TIME. CALL LIGHT IN REACH.
--- NOTE | 2021-01-06 20:30 | NUR ---
ASSESSMENT COMPLETED. GCS 15, A&O TO PERSON, PLACE, AND TIME. LUNGS CLEAR IN UPPER LOBES AND DIMINISHED IN LOWER LOBES. HEART TONES IRREGULAR. ABD SOFT, NONTENDER, PT STATES NORMAL, BOWEL TONES ACTIVE. SCHEDULED MEDS PROVIDED. CMS INTACT. PT HAS 3 AREAS OF REDNESS, OPEN TO AIR. BLE RED, SCALING, 4+ EDEMA. LUE 2+ EDEMA, SKIN TEAR ON FA, COVERED. RUE 3 COVERED SKIN TEARS. ALL ALLEVYN ARE DRY. PT IS FOREGETFUL, VERY PARTICULAR ABOUT THINGS AND FEARFUL OF LOSING POSESSIONS. NO OTHER NEEDS AT THIS TIME. CALL LIGHT IN REACH.
--- NOTE | 2021-01-06 20:33 | NUR ---
IN TO GET VITALS, PT IS DUE TO VOID, FRESH ICE WATER GIVEN, PT REMAINS IN THE CHAIR AT THIS TIME, HAS URINAL READY TO USE
--- NOTE | 2021-01-06 22:57 | NUR ---
IN TO CHECK ON PTs URINE OUTPUT, 50mls IN THE URINAL, PT DECLINES TO GET UP TO THE TOILET AND TRY, TOLD PT WE SHOLD TRY LATER THEN, NO FURTHER NEEDS AT THSI TIME
--- NOTE | 2021-01-06 23:33 | NUR ---
PT RESTING IN CHAIR, EYES CLOSED. RR EVEN, UNLABORED. CALL LIGHT IN REACH.
--- NOTE | 2021-01-07 00:21 | NUR ---
PT UP TO BR, SBA FWW, BACK TO BED. WARM BLANKETS PROVIDED. NO OTHER NEEDS. CALL LIGHT IN REACH.
--- NOTE | 2021-01-07 00:53 | NUR ---
CALL LIGHT ON, PT REQEUSTING COAT BACK FROM THE CLOSET, PROVIDED, ICE TOPPED OFF IN WATER, PT UNDECIDED ON WHAT ELSE HE NEEDS, TOLD PT IT WAS OKAY TO CALL LATER WHEN HE WAS READY
--- NOTE | 2021-01-07 03:00 | NUR ---
PT RESTING IN CHAIR, EYES CLOSED. RR EVEN, UNLABORED. CALL LIGHT IN REACH.
--- NOTE | 2021-01-07 05:29 | NUR ---
ASSESSMENT, VS AND I&O COMPLETED. GCS 15. PT ORIENTED TO PERSON, AND PLACE. LUNGS CLEAR IN UPPER LOBES, DIMINISHED IN LOWER LOBES. ABD SOFT, NONTENDER, PT STATES NORMAL, BOWEL TONES ACTIVE.LEFT ARM HAS 2+ EDEMA, SKIN TEAR COVERED WITH ALLEVYN ON FOREARM. RIGHT ARM HAS 1+ EDEMA WITH 3 SKIN TEARS COVERED WITH ALLEVYN. BACK HAS AN ABRASION AND A SKIN TEAR, COVERED WITH ALLEVYN. BLE 4+ EDEMA, RIGHT LEG HAS 3 SKIN TEARS COVERED WITH GAUZE AND COBAN. PT SLEEPING IN CHAIR, WARM BLANKET PROVIDED. ENSURE PROVIDED. NO OTHER NEEDS AT THIS TIME. CALL LIGHT IN REACH.
--- NOTE | 2021-01-07 06:25 | NUR ---
PATIENT CALLED TO HAVE HIS FEET LOWERED. PATIENT WAS ENCOURAGED TO LEAVE FEET UP. PATIENT DECLINED. ENSURE PROVIDED PER REQUEST. CALL LIGHT IN REACH.
--- NOTE | 2021-01-07 07:45 | NUR ---
REPORT RECEIVED FROM NIGHT RN AND PT. CARE RESUMED. PT. IS SLEEPING UPRIGHT IN THE CHAIR AND RN STATED HE HAS REFUSED THE BED TONIGHT. PT. IS ALERT AND ORIENTED TO ALL BUT DATE. HE DENIES PAIN. LUNGS DIM. IN BASES. IV SITE HAS A SMALL AMOUNT OF DRIED BLOOD UNDER DRESSING BUT FLUSHES WELL WITH NO SIGNS OF INFILTRATION. +4 EDEMA BLE AND +2 IN LT. ARM. SKIN TEARS ON ARMS AND BACK ARE DRESSED WITH ALLEVYN AND INTACT. RT. LEG HAS BEEN DRESSED OVERNIGHT WITH GAUZE AND COBAND. DISCUSSED SAFETY AND POC. PT. LEFT RESTING WITH CALL LIGHT IN REACH.
--- NOTE | 2021-01-07 08:48 | NUR ---
Patient sitting up in chair eating breakfast. Talked about a shower today, patient unsure if wants one, will check back. call light in reach
--- NOTE | 2021-01-07 11:00 | NUR ---
PATIENT AWAKE IN CHAIR, VITALS AND I&OS CHARTED. GLENYS WADDELL IN ROOM, SBA WITH FWW TO BR TO VOID. PATIENT GRUMBLING HE AMBULATES, BUT COOPERATIVE. BACK TO CHAIR, FRESH GOWN AND WARM BLANKET PROVIDED. PATIENT STILL NOT INTERESTED IN SHOWER, OR BEDBATH. DID AGREE TO FACE AND NECK SHAVE BY THIS SCRAPER LOADER OPERATOR. CAN OF BEER AND FRESH WATER PROVIDED, PERSONAL COAT AND CALL LIGHT IN EASY REACH.
--- NOTE | 2021-01-07 11:06 | NUR ---
THIS NURSE SPOKE WITH PT. ABOUT GETTING UP TO THE BATHROOM TO TRY AND VOID. PT. DID NOT WANT TO LEAVE THE CHAIR AND STATED HE DID NOT THINK HE COULD STAND OR WALK. ENCOURAGED PT. AND EVENTUALLY HE AMBULATED TO THE BATHROOM WITH FWW AND SBA. VOIDED 100ML. PT. STATED HE DOES NOT WANT TO MOVE TODAY AND JUST WANTS TO STAY IN HIS CHAIR. ENCOURAGED HIM TO GET UP MORE OFTEN.
--- NOTE | 2021-01-07 12:10 | NUR ---
V BELT CURER EXPRESSED CONCERN ABOUT PT'S REFUSAL FOR SNF CARE. PT SITTING IN CHAIR, ALERT AND ORIENTED. NOTICED HANDS APPEAR TO BOTH BE SWOLLEN. PERSONAL POSSESSIONS, ESPECIALLY PICTURES APPARENTLY ARE PRICELESS TO HIM. PT STILL THINKS HE CAN STILL CARE FOR HIMSELF-MAYBE. GAVE ENCOURAGEMENT, HAD PRAYER AND WILL FOLLOW
[2021-01-07] MEDS ORDERED: LEVETIRACETAM500 MG PO (12:15)
[2021-01-07] MEDS ORDERED: K-TAB10 MEQ PO (12:16)
--- NOTE | 2021-01-07 13:40 | NUR ---
THIS RN INTO SPEAK WITH PATIENT REGARDING HIS WISHES FOR DISCHARGE. PATIENT STATES " MY FRIENDS ARE TELLING ME I HAVE TO GO TO [facility]." i ADVISED THE PATIENT THAT IT IS ULTIMATENTLY HIS CHOICE TO DISCHARGE HOME OR TO WBT AT THIS TIME. PAMELLA RN INTO ROOM. PATIENT CONTINUES TO DISCUSS PLACEMENT TO WBT WITH PAMELLA. AFTER A LENGTHY DISCUSSION PATIENT HAS DECIDED HE WOULD LIKE PLACEMENT TO WBT AT THIS TIME. DR. HIGH NOTIFIED, WILL WRITE DISCHARGE ORDERS. ATTEMPTED TO CONTACT [facility] AT [facility], NO ANSWER LEFT MESSAGE. WILL CONTINUE TO CONTACT [facility] FOR PLACEMENT.
--- NOTE | 2021-01-07 14:21 | NUR ---
PATIENT HAS INDICATED TO STAFF HE IS WILLING TO GO TO REHAB AT [facility] WHEN FACED WITH GOING HOME ALONE. TEXTED [facility] IN ADMITTING AT [facility]. CLINICALS FAXED TO THEM WITH CONFIRMATION RECEIVED AT 201PM. CALLED [facility] AND SPOKE WITH YUNG GALO. SHE STATES THIS PATIENT WAS THERE IN AND WENT AMA AFTER A COUPLE DAYS. HE WOULD NOT COOPERATE, OR LET THEM DO ANY CARES. THEY TRIED TO GET HIM TO STAY FOR THERAPIES BUT HE ENDED UP CALLING A CAB AND LEFT. SHE IS WILLING TO LOOK THROUGH THE CHART TO CONSIDER TRYING AGAIN WITH HIM. SHE STATES SHE DOES NOT THINK THEY WILL BE ABLE TO GO THROUGH CHART, AND SUBMIT FOR INSURANCE AUTH BEFORE 5PM. THEY ALSO HAVE ADMITS ALREADY SCHEDULED THIS WEEKEND SO AT EARLIERST HE COULD NOT COME UNTIL SUNDAY ANYWAY. UPDATED STAFF WHO WILL LET DR HIGH KNOW.
--- NOTE | 2021-01-07 14:57 | NUR ---
PER [facility] AT [facility], PATIENT PLACEMENT DECLINED DUE TO PAST BEHAVIOR AT THE FACILITY. PAMELLA COSTA RN AND DR. HIGH NOTIFIED.
--- NOTE | 2021-01-07 15:47 | NUR ---
THIS RN OVER TO UNIT TO SPEAK WITH GALA COSTA RN. AT THIS TIME PATIENT WOULD BE WILLING TO BE PLACED AT [facility] EVEN THOUGH HE HAD REFUSED PLACEMENT THERE THIS AM. PER DR. ANILA DELONG TO CONTACT [facility]. CHART FAXED TO HELENA AT [facility] FOR REVIEW.
--- NOTE | 2021-01-07 15:53 | NUR ---
patient call to Jannie, a friend, Jannie agreed that patient should go to [facility] in [place] and that she could not take him home. Patient said, "Gemma said I shouldn't go to [place]." Call to Jacob, she said, "I never said that, he should go there, he can't go home."
--- NOTE | 2021-01-07 17:54 | NUR ---
PATIENT AWAKE IN CHAIR, VITALS AND I&OS CHARTED. FRESH WATER ON SIDE TABLE. PERSONAL ITEMS AND CALL LIGHT IN CLOSE REACH
--- NOTE | 2021-01-07 18:11 | NUR ---
PT. IS HERE FOR POSSIBLE SEIZURES. ALERT AND ORIENTED. EDEMA BLE REMAINS UNCHANGED AT +4 PITTING EDEMA AND +2 IN LT. ARM. PT. WAS PLANNING TO DC TO HOME, BUT DECIDED TO GO TO FACILITY. CANNOT BE ADMITTED TO [facility] UNTIL SUNDAY AND THE PLAN IS TO STAY OVER THE WEEKEND. IV DC'D WHEN DISCHARGE WAS ORDERED INITIALLY. PT. VOIDING QS. EATING AND DRINKING WELL. AMBULATES WITH FWW SBA. LEGS WRAPPED AND RIGHT LEG WOUNDS DRESSED WITH NONADHERENT DRESSINGS AND REED BANDAGES. IF REMOVING ALLEVYN DRESSING, SATURATE FIRST. VERY FRAGILE SKIN.
--- NOTE | 2021-01-07 23:58 | NUR ---
In chair, head covered, legs dependent, snoring, call light at hands reach
--- NOTE | 2021-01-08 00:55 | NUR ---
IN TO PROVIDE PT A WARM BLANKET, NO FURTHER NEEDS
--- NOTE | 2021-01-08 01:34 | NUR ---
Resting, in chair, room air, eyes closed, no distress. legs in dependent position, edematous. multiple allevyn dressings over arm intact. ashley wraps to LE bilat intact
--- NOTE | 2021-01-08 02:55 | NUR ---
in chair, resting in hunchback position, head into lap, legs in dependent position, no distress. repositions self in chair. call light t hands reach
--- NOTE | 2021-01-08 05:36 | NUR ---
PT HAS SLEPT IN CHAIR ALL THIS SHIFT. ON ROOM AIR. MULTIPLE SKIN TEARS ALL OVER ARMS, BACK COVERED WITH ALLEVYN, BRUISED AREAS NO CHANGE. LE 4+ PITTING EDEMA, WRAPPED WITH REED WRAP, PT HAS KEPT LEGS IN DEPENDENT POSITION, DECLINES TO ELEVATED LEGS. OVERALL LE SKIN DRY, SLOUGHING OFF. TOLERATING FLUIDS. UP TO BR W1PA/FWW. BACK TO CHAIR, NO C/O PAIN. PT STATES THAT HE IS "GOING BACK TO HOME TODAY [facility] DID NOT WANTED HIM, SO I DONT WANT TO GO TO ANY OTHER PLACE EXCEPT MY HOME." FALL AND ASPIRATION PRECAUTIONS. WAS COOP WITH INSTRUCTIONS. NO IV SITE
--- NOTE | 2021-01-08 06:32 | NUR ---
Up to br, voided QS, yellow urine with sediments. no bm, back to chair, ensure clear given. irritable mood, easily redirected. declinees to elevate legs, cll light and fluids at bedside
--- NOTE | 2021-01-08 08:30 | NUR ---
REPORT RECEIVED FROM NIGHT RN AND PT. CARE RESUMED. PT. IS ASLEEP IN THE CHAIR. AWAKENS EASILY TO VOICE. ORIENTED TO ALL BUT DATE. HE REPEATEDLY EXPRESSED CONCERN WITH DC PLACEMENT. HE WANTS TO GO TO [place]. DISCUSSED HIS OPTIONS OF [facility] OR DC HOME. LUNGS DIM. IN BASES. EDEMA IN BLE UNCHANGED AND WRAPPED WITH REED BANDAGES AND NONADHERENT DRESSINGS. ALLEVYNS ON BACK AND ARMS CDI. NO IV PRESENT. PT. LEFT RESTING IN BED WITH CALL LIGHT IN REACH.
--- NOTE | 2021-01-08 09:22 | NUR ---
PATIENT UP IN CHAIR. AM CARE DONE AND VITALS DOCUMENTED. NOTHING ELSE NEEDED AT THIS TIME.
--- NOTE | 2021-01-08 10:41 | NUR ---
PATIENT REFUSED SHOWER OR ANY TYPE OF BED BATH. PATIENT VERY SLEEPY AND SLEEPING ON AND OFF IN CHAIR
--- NOTE | 2021-01-08 13:21 | NUR ---
ROUNDING ON PT. HE IS SLEEPING IN THE CHAIR WITH HIS HEAD ON THE TABLE. EATING AND DRINKING WELL. ENCOURAGED PT. TO GET UP AND TRY TO VOID. HE REFUSED BUT STATED HE WILL TRY SOON. Elie SNELL. IN TO WORK WITH HIM.
--- NOTE | 2021-01-08 15:46 | NUR ---
DURING THESE ROUNDS PATIENT ASLEEP IN HIS CHAIR.
--- NOTE | 2021-01-08 17:52 | NUR ---
PATIENT FINISHED ALL HIS MEAL. REFRESHED WATER. NOTHING ELSE NEEDED OFFERED BATHROOM. PATIENT DIDNT NEED TO GO
--- NOTE | 2021-01-08 18:11 | NUR ---
PT. IS RESTING IN CHAIR. HE HAS BEEN EATING AND DRINKING WELL TODAY.HE DENIES PAIN. STILL FOCUSED ON DISCHARGE PLAN AND HESITANT. ENCOURAGED PT. TO GET UP TO THE BATHROOM BUT HE REFUSED AND STATED HE IS COMFORTABLE IN THE CHAIR. EDUCATED ABOUT THE RISKS OF DVT AND PRESSURE INJURIES. LEGS STILL WRAPPED AND ALLEVYNS IN PLACE ON ARMS AND MID-BACK.
--- NOTE | 2021-01-08 19:30 | NUR ---
PAPER SORTER AND COUNTER ROUNDING NOTE. PT UTLIZES CALL LIGHT, ASKS FOR BLANKETS TO BE READJUSTED. PT SITTING UP IN CHAIR. DECLINES TO GO TO BED, STATES THAT THE BED IS UNCOMFORTABLE. PT DENIES FURTHER NEEDS AT THIS TIME. CALL LIGHT IN REACH. ROOM IN VIEW OF RN STATION WITH CURTAIN OPEN.
--- NOTE | 2021-01-08 19:57 | NUR ---
UP IN CHAIR, LEGS DEPENDENT, DECLINES TO ELEVATED LEGS. LE 4+ PITTING EDEMA, COVERED WITH REED WRAPS. PULSES VERY FAINT. MULTIPLE ALLEVYNS OVER ARMS. SKIN DRY SCALY. IRRITABLE MOOD, EASILY REDIRECTABLE, TOOK MEDS W/OPROBLEMS. WARM BLANKETS GIVEN. ON ROOM AIR, COOP WITH ASSESSMENT
--- NOTE | 2021-01-08 21:19 | NUR ---
PT UTLIZES CALL LIGHT, REQUESTS THAT BACK BE COVERED. INDUSTRIAL ILLUMINATING ENGINEER REMINDS PT THAT HIS COAT IS AROUND HIS WAIST, PT PREVIOUSLY TAKING HIS OWN COAT ON AND OFF. PT STATES "WELL IT'S JUST HANDIER WHEN YOU DO IT." ENCOURAGED PT INDEPENDENCE. PT STATES AGREEMENT. DENIES FURTHER NEEDS AT THIS TIME. CALL LIGHT IN [facility].
--- NOTE | 2021-01-08 22:09 | NUR ---
UP TP BR, VOIDED, REQUIRED MANY CUES, BACK TO CHAIR, LEGS DEPENDENT , DECLINES TO ELEVATE LEGS
--- NOTE | 2021-01-08 22:15 | NUR ---
in patient room to encourage him to get up to void. patient cooperated. back to chair. refuses to elevate legs and refuses to lay down in bed. call light in reach. patient denies any need.
--- NOTE | 2021-01-08 23:43 | NUR ---
Sleeping in chair, resting head on table. no distress. call light at hands reach
--- NOTE | 2021-01-09 02:45 | NUR ---
In chair, pt laying his head over table, legs dependent position. call light at hands reach
--- NOTE | 2021-01-09 05:26 | NUR ---
On room air, has slept all night sitting in recliner chair, resting head on table and legs in a dependent position. Up to br and voiding qs. Requires much encouragement. still wearing soild home cloths that he declines to take off. Edema of L hand much improved. and legs still w/o changes. multiple allevyn dressing over arms, bruise arms no changes. Uriel wraps to LE intact, tolerating fluids well. uses call light. irritable mood but cooperative. Pt to be dc'd Sunday to [facility]
--- NOTE | 2021-01-09 05:40 | NUR ---
Pt up to br, voided, irritable but redirectable, no c/o pain. Back to chair, declines to elevate legs
--- NOTE | 2021-01-09 08:27 | NUR ---
PATIENT UP IN CHAIR. PROVIDED AM CARE OFFERED BATHROOM PATIENT REFUSED.
--- NOTE | 2021-01-09 09:07 | NUR ---
PATIENT UP IN CHAIR REFUSES TO USE RESTROOM. VITALS AND I&O'S CHARTED
--- NOTE | 2021-01-09 09:47 | NUR ---
REPORT RECEIVED FROM NIGHT RN AND PT. CARE RESUMED. PT. IS ALERT AND ORIENTED TO ALL BUT THE DATE. HE DENIES PAIN. HE DOES NOT WANT TO TAKE OFF HIS HOME CLOTHING FOR ASSESSMENT. EVENTUALLY TOOK OFF HIS COAT, BUT WOULD NOT REMOVE PANTS OR SOCKS. EDEMA IN LEFT ARM IS IMPROVED SINCE YESTERDAY. HOWEVER, LT. HAND STILL HAS +2 EDEMA. ALLEVYN DRESSINGS ON ARMS ARE C/D/I. LUNGS DIM. IN BASES AND PT. NOT TAKING DEEP BREATHS. NO IV PRESENT. PT. SPIT OUT 10MEQ PO POTASSIUM AND STATED HE COULD NOT SWALLOW IT, TOOK 1 OF 2 TABS. WILL TRY AGAIN AFTER BREAKFAST. ENCOURAGED PT. TO GET UP TO THE BATHROOM AND AMBULATE. HE REFUSED. WILL TRY AGAIN THIS MORNING.
--- NOTE | 2021-01-09 10:14 | NUR ---
PT. HAS NOT HAD A BM SINCE ADMISSION. NIO MIRALAX ORDERED.
--- NOTE | 2021-01-09 13:39 | NUR ---
PATIENT IN CHAIR. OFFERED SHOWER OR BED BATH PATIENT STATES HE DOENT WANT IT BECAUSE HE IS TO COLD. PATIENTS VITALS CHARTED ALONG WITH I&O'S.
--- NOTE | 2021-01-09 13:39 | NUR ---
PATIENT DOES NOT WANT TO REMOVE HOME CLOTHING. HE AMBULATED TO THE BATHROOM WITH P.T. AND VOIDED 500ML. RIGHT EYE IS SLIGHTLY MORE DROOPY. 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 OTHERWISE, NEURO. ASSESSMENT SHOWS NO NEW DEFICITS. PT. IS ALERT AND ORIENTED TO ALL BUT DATE. LEFT RESTING IN CHAIR WITH CALL LIGHT IN REACH.
--- NOTE | 2021-01-09 15:49 | NUR ---
PATIENT IN CHAIR APPEARS TO BE SLEEPING
--- NOTE | 2021-01-09 17:44 | NUR ---
PATIENT IN CHAIR. VITALS AND I&O'S CHARTED. PATIENT REFUSED TO GET UP TO THE BATHROOM. NOTHING ELSE NEEDED AT THIS TIME
--- NOTE | 2021-01-09 19:45 | NUR ---
pt in chair, legs dependent position, declines to elevate. bruising over arms, multiple allevyn dressings over arms in place, edema L hand improving. LE dry, scaly skin, covered with ashley wraps. very edematous 4+ pitting, declines to elevate or let RN do a more through assessment of LE. Irritable mood. "Raymond not leaving tomorrow unless I go to [place]". Pt scheduled to be dc'd to [facility] in [place] in am. tolerating fluids. uses call light, easily redirectable
--- NOTE | 2021-01-09 20:45 | NUR ---
ENCOURAGED PT TO LAY IN BED, REFUSED BUT DID AGREED TO LET HIS FEET BE ELEVATED IN THE RECLINER CHAIR. WARM BLANKET GIVEN PER REQUEST.
--- NOTE | 2021-01-09 21:10 | NUR ---
PT WAVED THIS RN INTO ROOM. REQUESTED TO USE BATHROOM. REFUSED TO SIT ON TOIET, BUT STOOD. PT BOTTOM IS FREE FROM OPEN AREAS, IS RED MORE ON THE INNER LEFT BUTTOCK. HIGHLY ENCOURAGED PT TO LAY ON THE BED. PT REFUSED, SAID HE HASN'T SLEPT ON THAT BED. PILLOWS AND BLANKETS TO PT PREFERENCE. LIKES THE BLANKET OVER HIS HEAD DUT TO THE "BREEZE" HE CAN FEEL ON HIS HEAD. DOES HAVE HIS COAT ON. REFUSED TO TAKE OFF.
--- NOTE | 2021-01-10 01:07 | NUR ---
RESTING, ON ROOM AIR, IN CHAIR, FACE RESTING ON TABLE, LEGS IN DEPENDENT POSITION, NO DISTRESS NOTED, CALL LIGHT AND FLUIDS AT BEDSIDE
--- NOTE | 2021-01-10 03:45 | NUR ---
goes back to take a nap after having snacks, in chairn lays head in table, legs in dependent in position
--- NOTE | 2021-01-10 04:54 | NUR ---
up to br, voided large amount of yellow urine. back to chair, fww/1pa, tolerated well. declines to elevate legs. On room air, no c/o pain, irritable mood, redirectable.
--- NOTE | 2021-01-10 06:12 | NUR ---
Pt on room air, sitting in chair, feet dependent position, has declined to elevate even with multiple cues. Multiple allevyn over arms , skin bruised healing. LE skin dry, scaly, covered w ashley wraps. edematous 4+ pitting. irritable, paranoid mood, easily redirectable. Requires many cues to get up to br, has voided QS. Sleeps in chair with head resting on table. no distress. no c/o pain, tolerating fluids well
--- NOTE | 2021-01-10 07:30 | NUR ---
this rn received report from isak parra. pt appears to be resting with his head down on the table with respirations noted
--- NOTE | 2021-01-10 08:06 | NUR ---
PATIENT IN CHAIR ASLEEP WHEN THIS BIOMASS BOILER OPERATOR CAME IN. VITALS TAKEN. PATIENT STATES NOTHING ELSE NEEDED AND REFUSES TO USE BATHROOM
--- NOTE | 2021-01-10 08:14 | NUR ---
this rn rounded on pt. no change from previous note at this time.
--- NOTE | 2021-01-10 09:26 | NUR ---
THIS RN INTO ROOM TO DISCUSS PATIENTS PLACEMENT OPTIONS. PER HELENA AT [facility] PATIENT MEDICARE ADV[employer]AGE IS NOT IN NETWORK AT THIS TIME SO THEY ARE UNABLE TO ACCEPT THE PATIENT AT THIS TIME. DISCUSSED WITH PATIENT THAT CASE MANAGEMENT CAN CONTACT HIS INSURANCE TO SEE WHICH CARE FACILITIES ARE CURRENTLY IN NETWORK, BUT THERE IS NO GUARANTEE THAT HE WOULD BE PLACED IN A LOCAL FACILITY. PATIENT ALSO ADVISED THAT HE COULD DISCHARGE HOME AND CASE MANAGEMENT COULD FACILITATE A HOME HEALTH CONSULT. PATIENT STATES "WELL I GUESS [facility] SHOULD BE PART OF THIS DECISION." I ADVISED THE PATIENT AGAIN THAT SINCE [employer] HIS EX DOES NOT HAVE POA THAT THE PATIENT WILL NEED TO GIVE THE FINAL DECISION ON PLACEMENT. PATIENT ASKED THAT THIS RN CONTACT [facility] AT THIS TIME TO GIVE AN UPDATE. [facility] CONTACTED AND UPDATED. PER [facility] SHE WILL CONTACT THE PATIENT TO DISCUSS DISCHARGE OPTIONS AT THIS TIME. THIS RN TO FOLLOW UP WITH PATIENT. [employer], SUPERVISOR PATCHING AND DR. HIGH UPDATED.
--- NOTE | 2021-01-10 10:06 | NUR ---
THIS RN IN PTS ROOM TO CHECK ON PT, GIVE MORNING MEDS, AND DO MORNING ASSESSMENT. PT TRYING TO FIGURE OUT WHERE HE WANTS TO GO ON DISCHARGE. PT UP TO THE RESTROOM AT THIS TIME. PT SBA 1P WITH FWW, PT STEADY ON FEET BUT PTS BLL ARE SWOLLEN, EDEMA = 4+, PTS LEFT HAND EDEMA 3+.
--- NOTE | 2021-01-10 10:40 | NUR ---
[facility] CALLED TO STATE THEY CANNOT GET AUTH FOR SNF THEY ARE NOT IN NETWORK. HE CAN COME IF HE PAYS GRAFF. [employer]UT[employer] MARKET CONSULTANT TODAY DEBBI SPOKE WITH PATIENT AND HE CONTINUES TO SAY HE "JUST WANT TO GO HOME" AND THAT HE IS CALLING FRIENDS TO TAKE HIM HOME. I CALLED [employer] WHO IS HIS MEDICARE ADVANTAGE CARRIER. SPOKE WITH KARON. SHE STATES HE HAS NETWORK COVERAGE FOR [facility] IN [place]. EXPLAINED HE WAS DENIED THERE FOR PAST BEHAVIORS. THE NEXT [facility]LOSEST [facility]. SHE STATES HE IS COVERED 100% WITH AUTH FOR HOME HEALTH AND IN NETWORK IS [facility]UD[facility]OH[facility]. THIS IS THE ONLY ONE IN OUR AREA IN HIS NETWORK.
--- NOTE | 2021-01-10 12:11 | NUR ---
MULTIPLE STAFF HAVE TRIED TO CONVINCE PATIENT THAT HE NEEDS MORE REHAB AND GOING TO A FACILITY WOULD BE BEST. PATIENT HAS REFUSED THIS OPTION. PATIENT ALSO HAS BEEN REFUSING THERAPY MOST OF WEEKEND. HE IS UP WALKING WITH A WALKER AND HAS ONE AT HOME. I WENT TO ROOM AND PATIENT WAS ON THE PHONE WITH A FRIEND "DEB" AND WANTS ME TO TALK WITH HIM ABOUT HIM GETTING HOME. SPOKE WITH HIS FRIEND. DEB STATES PATIENT REALLY NEEDS TO LIVE SOMEWHERE WITH HELP. HE STATES HE AND PATIENTS EX CANNOT BE THERE ENOUGH TO MAKE SURE HE IS GETTING HELP. I EXPLAINED WE AGREE. I EXPLAINED PATIENT IS NOW REFUSING SNF PLACEMENT. DISCUSSED THAT HE IS ORIENTED AND HAS THE RIGHT TO MAKE HIS DECISIONS. DEB STATES "WELL HE HAD A STROKE IN THE PAST". I EXPLAINED EVEN SO, HE STILL HAS HIS RIGHT. DISCUSSED THAT WE TRIED TO GET HIM TO GO LAST ADMIT, AND HE REFUSED. DISCUSSED THAT WE WILL ORDER HOME HEALTH TO FOLLOW HIM AND I WILL HAVE CHW CALL HIM AND TRY TO HELP HIM WITH RESOURCES AND IF HE CHANGES HIS MIND HE CAN STILL GO TO SNF IF HE DECIDES WITHIN 30 DAYS. HE STATES "WELL WE DON'T WANT TO HELP HIM IF HE MAKES DECSION TO GO BACK HOME". I EXPLAINED THEY CERTAINLY HAVE THAT RIGHT. I SPOKE WITH HENNY VERY STRAIGHT. I EXPLAINED THAT HE WAS PLANNED TO GO TO REHAB AT A LONG TERM FACILITY BECAUSE HE REFUSED THAT LAST TIME AND FAILED AT HOME. REMINDED HIM HE WAS IN ED TWICE AND ADMITTED AGAIN. DISCUSSED THAT I CAN'T MAKE HIM GO, BUT IT WOULD BE IN HIS BEST INTEREST TO GET STRONGER. HE CONTINUES TO SAY HE WANTS TO GO HOME. HE STATES "WHY CAN'T THEY JUST COME TO MY HOUSE". DISCUSSED THAT IT DOESN'T WORK THAT WAY. DISCUSSED THAT WE CAN ORDER HOME HEALTH THERAPY, BUT THEY ONLY COME IN FOR AN HOUR A COUPLE TIMES A WEEK. THEY DO NOT COME TO CARE FOR YOU. DISCUSSED HE CAN HIRE HELP, GAVE HIM A BROCHURE FOR HELPING HANDS. DISCUSSED THAT I CAN HAVE SOMEONE FROM [facility] CALL HIM TO TRY AND SET UP ASSESSMENT FOR POSSIBLE HELP AT HOME OR HELP PAYING FOR ASSISTED LIVING SITUATION. DISCUSSED HE WILL HAVE TO ANSWER THE PHONE AND PARTICIPATE WITH THEM IF HE WANTS THAT HELP. HE STATES HE WILL. DISCUSSED THAT I WILL GIVE A REFERRAL TO OUR CHW WHO WILL CALL HIM IN A DAY OR TWO AND SHE CAN WALK HIM THROUGH ALL THESE PROCESSES IF HE WILL TAKE THAT HELP. DISCUSSED IT IS A FREE SERVICE. HE SAYS HE AGREES TO THIS. PATIENT WILL NOT EVEN TALK ABOUT GOING OUT OF TOWN TO FACILITY ANY FURTHER. HE HAD HIS LUNCH DELIVERED AND SAYS HE IS GOING TO EAT AND GO HOME. HE STATES HE IS CALLING ANOTHER FRIEND FOR A RIDE.
--- NOTE | 2021-01-10 12:42 | NUR ---
CALLED [facility] AND SPOKE WITH ALYSA IN ADULT PROTECTIVE SERVICE. DISCUSSED THAT PATIENT IS INSISTING ON DISCHARGING HOME AGAIN. SHE STATES THEY HAVE AN OPEN CASE ON HIM. SHE STATES THEY WILL CHECK ON HIM. I ASKED THAT SHE REQUEST A GLUER TO TALK WITH HIM TO SEE IF HE WILL DO AN ASSESSMENT FOR POSSIBLE IN HOME CARE OR ASSITED LIVING IF NEEDED. SHE STATED SHE WILL REQUEST THAT. DISCUSSED WITH HER THAT WE ARE ORDERING HOME HEALTH AND WILL HAVE CHW LOOK IN ON HIM FOR POSSIBLE RESOURCES.
--- NOTE | 2021-01-10 14:15 | NUR ---
CALLED [facility] REGARDING REFERRAL FOR PT AND OT. THEY STATE THEY WILL NOT HAVE AVAILABILITY TO TAKE REFERRAL UNTIL NEXT WEEK DUE TO STAFFING.
--- NOTE | 2021-01-10 16:23 | NUR ---
LEFT A MESSAGE FOR DR ALICIA OR NURSE EARLIER. GLENYS IVAN CALLED BACK. DISCUSSED PATIENTS LAST TWO ADMITS AND HIS INSISTANCE ON GOING HOME. ALSO THAT HOME HEALTH CANNOT GET IN FOR ANOTHER WEEK AT LEAST. DISCUSSED THAT I CALLED [facility] TO REPORT HIS BEING HOME TO ASK FOR THEM TO CHECK HIM AND PERHAPS GET DISCOTHEQUE DANCER TO WORK WITH HIM ON POSSIBLE HELP WITH IN-HOME CARE OF ASSISTED LIVING. SHE STATES THE LAST TIME HE WAS THERE WAS 12/31/20 AND HE HAD A FRIEND WITH HIM AND DR ALICIA SPENT OVER 30 MINUTES TRYING TO CONVINCE HIM HE IS NOT SAFE AT HOME AND NEEDS ASSISTED LIVING. HE WAS VERY ADAMANT WITH HER THEN THAT HE IS NOT LEAVING HIS APARTMENT. SHE ALSO ORDERED HOME HEALTH, BUT APPARENTLY HE REFUSED THEM WHEN THEY CALLED. SHE IS UNSURE WHAT TO DO ABOUT HIM. SHE STATES HE HAS BEEN ORIENTED AND SEEMS TO UNDERSTAND BUT STILL DOES NOT WANT TO FOLLOW ADVICE. THEY WILL TRY TALKING WITH HIM AGAIN ON HIS F/U 01/13/21.
--- NOTE | 2021-01-11 10:39 | NUR ---
PATIENT WAS DISCHARGED HOME YESTERDAY AFTERNOON AFTER REFUSING SNF TRANSFER. DISCHARGE OFFICE RECEIVED A CALL FROM EX- THIS MORNING STATING PATIENT HAS TO GO TO INTERMEDIATE. THAT HE CAN'T TAKE CARE OF HIMSELF AND SHE CAN NO LONGER HELP HIM. IT WAS EXPLAINED TO HER, AGAIN, THAT WE CANNOT MAKE HIM GO AND HAVE TRIED MULTIPLE TIMES TO GET HIM TO GO. SHE STATES THAT HE SAYS HE WILL GO NOW. CALLED PATIENT AT HOME, WHEN ASKED IF HE ASKED EX TO CALL BECAUSE HE DOES KNOW WHAT TO GO TO SNF, HE WOULD NOT COMMIT TO EXACTLY THAT. SAID HE NEEDS HELP THERE. EXPLAINED AGAIN THAT WE HAVE THINGS IN PLACE FOR CHW TO WORK WITH HIM THIS WEEK, POSSIBLE [employer] ASSESSMENT AND HOME HEALTH TO START NEXT WEEK. THEN HE STATES MAYBE HE NEEDS TO GO TO INTERMEDIATE. STATES "GUESS I HAVE NO OTHER OPTION". I ASKED TWICE THAT IF I FIND AN ACCEPTING FACILITY HE WOULD DEFINATELY GO. I ALSO REMINDED HIM THAT IT WILL NOT BE CLOSE TO [place] DUE TO INSURANCE RESTRICTIONS. HE THEN BEGAN DRIFTING TO "WELL IF [facility] WOULD COME OVER AND HELP ME" OF WHICH I REMINDED HIM THAT SHE WORKS AND SHE IS FROM HIM AND IS NOT BOUND TO CARE FOR HIM. HE THEN AGREED TO A INTERMEDIATE. TOLD PATIENT I WILL WORK ON IT, BUT IT COULD TAKE A COUPLE DAYS TO FIND ONE, FOR THEM TO GET AN AUTH FROM INSURANCE, AND THEN ACCEPTING HIM WITH ORDERS SENT. TOLD HIM I WILL KEEP HIM UPDATED. HE AGREED TO THIS
--- NOTE | 2021-01-11 14:27 | NUR ---
CALLED PATIENT TO UPDATE ON REHAB PLAN. DISCUSSED THAT [facility] IS LOOKING TO TRY AND GET HIM THERE. HE IMMEDIATELY STARTED SAYING "OH NO THAT A MILLION MILES AWAY" AND I REMINDED HIM THAT HIS INSURANCE LIMITS OPTIONS, THAT WHEN I SPOKE WITH HIM EARLIER I DISCUSSED HE WOULD HAVE TO LEAVE THE AREA, AND I AM LIMITED TO WHO WILL TAKE HIM TO PROVIDE HIS NEEDS. HE THEN WANTED ME TO CALL THREE DIFFERENT PEOPLE TO UPDATE THEM, AND I TOLD HIM HE IS THE ONLY ONE I WILL BE UPDATING. HE HAS HIS FRIENDS ON HIS CELL, HE CAN CALL THEM IF HE WANTS TO UPDATE THEM. I SUGGESTED HE PACK SOME CLOTHES SO THAT IF WE HEAR IN THE MORNING HE CAN GO, HE WILL BE READY. PATIENT STATES HE CAN'T. HE NEEDS HELP. I SUGGESTED HE ASK ONE OF HIS FRIENDS. I TOLD HIM THEY SAID THEY WOULD HELP HIM IF HE WENT TO REHAB. HE STATES AGAIN FOR ME TO CALL [facility]. I AGAIN STATED HE CAN CALL HER. PATIENT HAS BEEN CAPABLE TO CALLING OUR OFFICE SEVERAL TIMES TODAY, AND [facility] CALLED THERE AND SHE SAID HE HAS CALLED HER, SO I KNOW THAT IS POSSIBLE. AGAIN I REMINDED HIM THAT I MIGHT NOT HEAR TODAY ON IF HE IS ACCEPTED ANYWHERE, IT MIGHT BE IN THE MORNING. HE SAID OK. THEN HE STATED 'I WISH THAT HOSPITAL WOULD HELP ME MORE" AND I REMINDED HIM THAT WE TRIED TO GET HIM TO GO FROM HERE, AND HE INSISTED IN GOING HOME. I REMINDED HIM THAT I AM TRYING TO HELP FIND A PLACE. HE STATES THAT "YOU ARE TRYING TO SEND ME TOO FAR" AND AGAIN REMINDED HIM I HAVE NO CONTROL OVER WHO THE INSURANCE WILL COVER, OR WHO ACCEPTS HIM. HE TRIED TO TURN THE CONVERSATION ON TO OTHER SUBJECTS, BUT I ENDED THE CONVERSATION TELLING HIM I WILL CALL HIM SOON I GET ANY UPDATES.
== END 2021-01-10 13:00 | disposition home health service (06) | DRG 101 ==
LOC: ED 09:45 → CCU 09:48 → MS 01-05 18:15
PROVIDERS: ADMIT Internal Medicine; ATTEND Internal Medicine
DX: R56.9 Unspecified convulsions (principal); I48.20 Chronic atrial fibrillation, unspecified; Z20.822 Contact with and (suspected) exposure to COVID-19; I89.0 Lymphedema, not elsewhere classified; E11.22 Type 2 diabetes mellitus with diabetic chronic kidney disease; I12.9 Hypertensive chronic kidney disease with stage 1 through stage 4 chronic kidney disease, or unspecified chronic kidney disease; N18.30 Chronic kidney disease, stage 3 unspecified; R45.1 Restlessness and agitation; Z79.899 Other long term (current) drug therapy; Z79.01 Long term (current) use of anticoagulants; Z86.73 Personal history of transient ischemic attack (TIA), and cerebral infarction without residual deficits; Z87.891 Personal history of nicotine dependence; Z86.718 Personal history of other venous thrombosis and embolism
CPT/HCPCS: 36415; 36600; 51702; 70450; 71045; 80048; 80053; 81001; 82803; 83605; 83735; 84484; 85025; 85610; 85730; 87040; 87077; 87181; 87184; 87186; 93005; 93010; 97110; 97116; 97162; 97166; 97530; 97535; 99285-25; J1815; J1953; J3411; J7030; U0003

== ENCOUNTER 2021-02-21 10:42 | Emergency (ER) | payer MEDICARE, MEDICAID ==
[~2021-02-21] VITALS: Ht 185.4 cm; Wt 74.8 kg
[~2021-02-21 10:42] MED LIST changes: +ELIQUIS5 MG PO; +LEVETIRACETAM500 MG PO
[2021-02-21] MEDS ORDERED: CEPHALEXIN500 M1 PO (15:51)
--- NOTE | 2021-02-22 11:25 | EKG ---
[facility] [address] [place] [address] Signed Atrial fibrillation Septal infarct , age undetermined Abnormal ECG When compared with ECG of 03-JAN-2021 09:58, Previous ECG has undetermined rhythm, needs review Septal infarct is now present T wave inversion no longer evident in Anterior leads Confirmed by SIENA HIGH MD ([id number]) on 02/22/2021 11:25:14 AM Electronically Signed By: SIENA HIGH MD 02/22/21 1125 PATIENT NAME: HENNY SAUCEDA Electrocardiogram DATE OF : 45 PHYSICIAN: SIENA HIGH MD REPORT #: [id number] REPORT IS CONFIDENTIAL AND NOT TO BE RELEASED WITHOUT AUTHORIZATION
== END 2021-02-21 19:09 | disposition home or self-care (01) ==
LOC: ED 10:42
DX: N39.0 Urinary tract infection, site not specified (principal); E87.0 Hyperosmolality and hypernatremia; Z20.822 Contact with and (suspected) exposure to COVID-19; I10 Essential (primary) hypertension; Z87.891 Personal history of nicotine dependence; Z91.018 Allergy to other foods; Z79.899 Other long term (current) drug therapy
CPT/HCPCS: 51702; 71045; 80053; 81001; 84484; 85025; 87040; 87077; 87088; 87186; 93005; 93010; 99284-25; C9803; J0696; J3480; J7030; J7070; U0003